=== PATIENT | female | born 1950 | race Caucasian/White ===

== ENCOUNTER 2017-11-30 06:04 | Day surgery (SDC) | payer OTHER, MEDICARE ==
--- OUTSIDE RECORDS SUMMARY | 2017-11-30 06:06 | XMS REPORT | Clinical Summary ---
:1950 Author Organization [facility] Address [address] [place] [address] Care Team Providers Name Role Phone Eduardo Padilla MD Primary Care Provider Allergies Active Allergy Reactions Severity Noted Date Comments Celecoxib Hives 08/16/2016 Cephalexin Other (See Comments) 08/16/2016 Current Medications Prescription Sig. Disp. Refills Start Date End Date Status propranolol (INDERAL) Take 40 mg Active 40 MG tablet by mouth 3 (three) times a day. meloxicam (MOBIC) 7.5 Take 7.5 mg 0 05/10/2016 Active mg tablet by mouth once daily. citalopram (CeleXA) Take 10 mg Active 10 MG tablet by mouth daily. estazolam (PROSOM) 2 Take 2 mg by Active MG tablet mouth nightly. aspirin (ECOTRIN) 81 Take 81 mg Active MG enteric coated by mouth tablet daily. uffi-klys-zgb-yuc-félix Take by Active -sultana-hor mouth. [phone] mg tablet Lactobacillus Take 1 Active acidoph-L.bulgar packet by (LACTINEX) 100 mouth 2 million cell tablet (two) times a day. cholecalciferol, Take 2,000 Active vitamin D3, (VITAMIN Units by D3) 2,000 unit mouth daily. capsule capsule pantoprazole Take 40 mg Active (PROTONIX) 40 MG EC by mouth 2 tablet (two) times a day. liothyronine Take 5 mcg Active (CYTOMEL) 5 MCG by mouth tablet daily. dicyclomine (BENTYL) Take 1 120 capsule 11 03/21/2017 Active 10 MG capsule (10 8 capsuleIndications: mg total) by HH (hiatus hernia), mouth 4 Gastroesophageal (four) times reflux disease, a day before esophagitis presence meals and not specified, nightly. Chronic gastritis with bleeding, unspecified gastritis type levothyroxine Take 100 mcg Discontinued (SYNTHROID, LEVOXYL) by mouth 7 100 mcg tablet every morning. esomeprazole Take by Discontinued magnesium 22.3 mg mouth. 7 capsule,delayed release(DR/EC) sucralfate (CARAFATE) Take 10 mL 1200 mL 0 03/21/2017 100 mg/mL (1 g total) 7 suspensionIndications by mouth 4 : HH (hiatus hernia), (four) times Gastroesophageal a day for 30 reflux disease, days. esophagitis presence not specified, Chronic gastritis with bleeding, unspecified gastritis type Active Problems Problem Noted Date Family history of polyps in the colon 08/16/2016 Hemorrhoids Pruritus ani HH (hiatus hernia) GERD (gastroesophageal reflux disease) Diverticulosis Gastritis Encounters Date Type Specialty Care Team Description 03/22/2017 Telephone Gastroenterology Reji Moore MD 03/21/2017 Office Visit Gastroenterology Reji Moore Hemorrhoids, unspecified hemorrhoid type (Primary Dx); MD Malick (hiatus hernia); Gastroesophageal reflux disease, esophagitis presence not specified; Diverticulosis of large intestine without hemorrhage; Chronic gastritis with bleeding, unspecified gastritis type; Pruritus ani; Family history of polyps in the colon 03/20/2017 Telephone Gastroenterology Reji Moore MD after 11/29/2016 Family History Medical History Relation Name Comments No Known Problems Mother Relation Name Status Comments Father Mother Social History Tobacco Use Types Packs/Day Years Used Date Former Smoker Alcohol Use Drinks/Week oz/Week Comments No Sex Assigned at Date Recorded Not on file Last Filed Vital Signs Vital Sign Reading Time Taken Blood Pressure 129/82 03/21/2017 4:17 PM CDT Pulse 77 03/21/2017 4:17 PM CDT Temperature 36.7 C (98 F) 03/21/2017 4:17 PM CDT Respiratory Rate - - Oxygen Saturation - - Inhaled Oxygen Concentration - - Weight 74.4 kg (164 lb) 03/21/2017 4:17 PM CDT Height - - Body Mass Index - - Plan of Treatment Health Maintenance Due Date Last Done Comments COLONOSCOPY 01/25/1998 MAMMOGRAM 01/25/1998 ZOSTER VACCINE 2008 PNEUMOCOCCAL POLYSACCHARIDE VACCINE AGE 65 AND OVER 01/25/2013 PNEUMOCOCCAL-13 01/25/2013 INFLUENZA VACCINE 03/14/2018 Results Not on fileafter 11/29/2016 Insurance Payer Benefit Plan / Group Subscriber ID Type Phone Address MEDICARE MEDICARE PART A AND B xxxxxxxxxx Medicare [place], [place] AARP AARP SUPPLEMENT xxxxxxxxx-xx Commercial [phone] [place], [place] [phone]
[2017-11-30] MEDS ORDERED: GLYCOPYRROLATE 0.2 MG/ML SYR ONE (07:01)
[2017-11-30] MEDS ORDERED: Ringers Lactate 1,000 ML IV ONE (07:02)
[2017-11-30] MEDS ORDERED: LIDOCAINE VISCOUS 2% SOLN 15 ML UDC ONE (07:17)
[2017-11-30] MEDS: Phenylephrine HCl 10 MG/ML 1 ML VIAL ONE ×2 (07:25→08:16)
[2017-11-30] MEDS: LIDOCAINE 4% TOP SOLUTION TOP ONE ×2 (07:25→08:16)
[2017-11-30] MEDS ORDERED: FENTANYL CITR 100 MCG/2 ML ONE (08:00)
[2017-11-30] MEDS ORDERED: MIDAZOLAM HCL 2 MG/2 ML INJ ONE (08:00)
[2017-11-30] MEDS ORDERED: PROPOFOL 200 MG/20 ML VIAL IV ONE (08:00)
[2017-11-30] MEDS ORDERED: LIDOCAINE 1% MPF 30 ML VIAL ONE (08:01)
[2017-11-30] MEDS ORDERED: LIDOCAINE 1% MPF 5 ML VIAL ONE (08:01)
--- NOTE | 2017-11-30 08:40 | P.OP ---
Date of Service: 11/30/17 (Bronchoscopy) Findings and Operative Technique Patient is 67 years of age evaluated by me for possible hemoptysis the former smoker has a reason for bronchoscopy DT scan chest x-ray unremarkable After obtaining informed consent from the patient she was premedicated by anesthesia finding normal upper airway normal vocal cords normal trachea normal lukasz normal endobronchial anatomy no endobronchial lesions visible no evidence of any bleeding in the entire respiratory tract Patient states that she has had endoscopy done before fold no bleeding I have instructed her to follow-up with the track and field coach she will need an endoscopy to rule out GI cause for her bleeding and present at bedside no procedures biopsies performed patient is in stable condition did not experience any hypertension or arrhythmia as
[2017-11-30 09:02] VITALS: BP 124/73; TEMP 98.1; O2SAT 97
== END 2017-11-30 09:10 | disposition home or self-care (01) ==
LOC: OR 06:04
PROVIDERS: ATTEND Internal Medicine Sleep Medicine
PROC: 0BJ08ZZ Inspection of Tracheobronchial Tree, Via Natural or Artificial Opening Endoscopic (ICD-10-PCS; principal; 2017-11-30 08:00)
DX: R04.2 Hemoptysis (principal); J44.9 Chronic obstructive pulmonary disease, unspecified; F32.9 Major depressive disorder, single episode, unspecified; K21.9 Gastro-esophageal reflux disease without esophagitis; I47.1 Supraventricular tachycardia; Z79.82 Long term (current) use of aspirin; Z88.1 Allergy status to other antibiotic agents; Z88.8 Allergy status to other drugs, medicaments and biological substances; Z87.891 Personal history of nicotine dependence
CPT/HCPCS: 31622; J2250; J2370; J3010

== ENCOUNTER 2019-06-27 15:24 | Emergency (ER) | payer OTHER, MEDICARE ==
--- OUTSIDE RECORDS SUMMARY | 2019-06-27 15:26 | XMS REPORT ---
:1950 Author [facility] Address [address] [place] [address] Care Team Providers Name Role Phone Unavailable Unavailable Unavailable Payers Payer Name Policy Type Policy Number Effective Date Expiration Date Problems This patient has no known problems. Allergies, Adverse Reactions, Alerts Allergy Name Allergy Status Severity Reaction(s) Onset Inactive Treating Comments Type Date Date Clinician misoprostol DA Active U 2019-04 00:00:0 0 cephalexin DA Active U 2019-04 00:00:0 0 diclofenac DA Active U 2019-04 00:00:0 0 celecoxib DA Active U 2019-04 00:00:0 0 misoprostol DA Active U 2019-03 00:00:0 0 cephalexin DA Active U 2019-03 00:00:0 0 trimethoprim DA Active U 2019-03 00:00:0 0 diclofenac DA Active U 2019-03 00:00:0 0 celecoxib DA Active U 2019-03 00:00:0 0 codeine DA Active U 2009-02 00:00:0 0 cephalexin DA Active U 2009-02 00:00:0 0 trimethoprim DA Active U 2009-02 00:00:0 0 Medications This patient has no known medications. Results Test Description Test Time Test Comments Text Results Atomic Results Result Comments - XR FLUORO FOR SPINE INJ 2019-04-16 16:47:00 Patient Name: BECCA FISHER Unit No: [id number] EXAMS: CPT CODE: [id number] XR FLUORO FOR SPINE INJ 63399 LUMBAR EPIRADICULAR INJECTION REFERRAL PHYSICIAN: Grzegorz Rayo M.D. PREOPERATIVE DIAGNOSIS: Lumbar Radiculitis POSTOPERATIVE DIAGNOSIS: L3-4 disc displacement with stenosis and bilateral lower extremity radicular pain PROCEDURES PERFORMED: Fluoroscopically guided needle localization of the bilateral L3 and bilateral L4 spinal nerves with transforaminal epidurograms and epidural injection of local anesthetic and steroid. FINDINGS: Fairly good flow seen through all foramen however proximal flow was limited in the bilateral L3-4 and L2-3 lateral recesses with limited flow cephalad across the L2-3 and L3-4 discs. Provocation with injection was negative. Anesthetic response was positive with the patient noting complete relief of her low back and lower extremity pains. Preinjection VAS 4/10. Postinjection VAS 0/10. Steroid response pending follow-up. ESTIMATED BLOOD LOSS: Minimal ANESTHESIA: TIVA COMPLICATIONS: None DETAILS OF PROCEDURE: After obtaining stable vital signs, informed consent and IV access, with no contraindications, the patient was taken to the operating room and placed in a prone position with all extremities padded and appropriate monitors placed. The patient was sterilely prepped and draped over the lumbosacral spine. Using fluoroscopic visualization the insertion sites were marked for paravertebral approaches and using standard technique, a 25 gauge needle was advanced to the base of each pedicle without paresthesias. Isovue-300 contrast 0.2 mL of was injected incrementally with frequent negative aspirations to produce each epidurogram. There were no signs of intravascular or intrathecal uptake. Bupivicaine 0.75% 0.25 mL with lidocaine 4% 0.25 mL and Decadron 5 mg was then incrementally injected with frequent negative aspirations and again there were no signs of intravascular or intrathecal uptake. The needles were removed and the patient was taken to the PACU in good condition. at 2350 Reported and signed by: Raj Israel M.D. CC: Raj Israel MD Technologist: ROLF OSUNA RT(R) Transcribed D/ (3824) [facility] NAME: BECCA FISHER [address] [facility] PHYS: Raj Marsh MD [place], [place] [address] : 1950 AGE: 69 SEX: F LOC: [facility] PHONE #: [phone] EXAM DATE: 04/16/2019 STATUS: [place] [facility] [place] #: [phone] RAD #: [id number] D/C DT PAGE 1 Signed Report Patient Name: BECCA FISHER Unit No: [id number] EXAMS: CPT CODE: [id number] XR FLUORO FOR SPINE INJ 23406 <Continued> Orig Print D/T: S: 04/16/2019 (1651) [facility] NAME: BECCA FISHER [address] [facility] PHYS: Raj Marsh MD [place], [place] [address] : 1950 AGE: 69 SEX: F LOC: [facility] PHONE #: [phone] EXAM DATE: 04/16/2019 STATUS: REG [facility] [place]X #: [phone] RAD #: [id number] D/C DT PAGE 2 Signed Report - MRI L-SPINE W/O CONT 2019-03-27 08:01:00 Patient Name: BECCA FISHER Unit No: [id number] EXAMS: CPT CODE: [id number] MRI L-SPINE W/O CONT 67932 DIAGNOSIS: 1. At L1-2 there is no evidence for disc bulge or herniation, bony canal or foraminal stenosis. 2. At L2-3 there is a degenerative grade 1 spondylolisthesis with 3 mm of left foraminal disc protrusion and mild left foraminal narrowing. Mild to moderate narrowing of the central canal is present with facet and ligamentum flavum hypertrophic and degenerative change. No right foraminal narrowing is seen. 3. At L3-4 there is a grade 1 degenerative spondylolisthesis with mild disc bulging and mild foraminal narrowing. There are to marked central canal stenosis is seen with facet and ligamentum flavum hypertrophic and degenerative change. Mild bilateral foraminal narrowing is present. 4. At L4-5 there is 3 mm of right foraminal disc protrusion with 2 mm across the midline. There is flattening of the ventral thecal sac. A moderate sized right facet cyst is present which is compressing the right L5 nerve root and the thecal sac. Moderate central canal stenosis is seen with facet and ligamentum flavum hypertrophic and degenerative change. Mild bilateral foraminal narrowing is noted. 5. At L5-S1 there is no evidence for disc bulge or herniation, bony canal or foraminal stenosis. COMMENT: COMPARISON: No prior exams available. Scans were performed in the sagittal and axial planes utilizing T1, T2 and inversion recovery images. Endplate and disc degeneration is seen from L2 to L5. The remaining discs are desiccated. There is a scoliosis convex left. Disc configurations are as described. Spondylitic changes are as noted. The conus is in the expected location. The description these findings assumes a normal count of 5 lumbar type vertebra. at 0801 Reported and signed by: Evaristo Lamb MD CC: Grzegorz Rayo MD Technologist: ZIGGY MENDOZA MRI Transcribed D/ (0801) tOLGA [facility] NAME: BECCA FISHER [address] [facility] PHYS: Grzegorz Aguiar : 1950 AGE: 69 SEX: F [place] [id number] LOC: Y.MRI PHONE #: [phone] EXAM DATE: 03/26/2019 STATUS: DEP CLI FAX #: [phone] RAD #: [id number] D/C DT PAGE 1 Signed Report Patient Name: BECCA FISHER Unit No: [id number] EXAMS: CPT CODE: [id number] MRI L-SPINE W/O CONT 40140 <Continued> Orig Print D/T: S: 03/27/2019 (0836) [facility] NAME: BECCA FISHER [address] [facility] PHYS: Grzegorz Aguiar : 1950 AGE: 69 SEX: F [place] [id number] LOC: Y.MRI PHONE #: [phone] EXAM DATE: 03/26/2019 STATUS: [facility] FAX #: [phone] RAD #: [id number] D/C DT PAGE 2 Signed Report
--- NOTE | 2019-06-27 16:16 | RAD REPORT ---
EXAM DESCRIPTION: CT - [id number] - 06/27/2019 3:50 pm CLINICAL HISTORY: Trauma, head and neck injury. fall, head injury COMPARISON: <Comparisons> TECHNIQUE: Axial 5 mm thick images of the head were obtained. Axial 2 mm thick images of the cervical spine were obtained with sagittal and coronal reconstruction images generated and reviewed. All CT scans are performed using dose optimization technique as appropriate and may include automated exposure control or mA/KV adjustment according to patient size. FINDINGS: CT HEAD WITHOUT CONTRAST: No acute hemorrhage, hydrocephalus or extra-axial collection is identified.No areas of brain edema or midline shift. The paranasal sinuses and mastoids are clear.The calvarium is intact. Right posterior scalp hematoma. CT CERVICAL SPINE WITHOUT CONTRAST: No fracture or subluxation.Postsurgical changes lower cervical spine.No prevertebral soft tissues swe lling is identified. IMPRESSION: No acute intracranial or cervical spine findings.
[2019-06-27] MEDS ORDERED: ACETAMINOPHEN 500 MG TAB ONE ×2 (16:22→16:27)
[2019-06-27] MEDS ORDERED: ONDANSETRON 4 MG/2 ML VIAL ONE (16:22)
--- NOTE | 2019-06-27 16:30 | RAD REPORT ---
EXAM DESCRIPTION: RAD - Chest Single View - 06/27/2019 4:25 pm CLINICAL HISTORY: syncope, near-syncope Chest pain. COMPARISON: Chest Pa And Lat (2 Views) dated 06/26/2019; Chest Pa And Lat (2 Views) dated 11/29/2017; Chest Pa And Lat (2 Views) dated 10/09/2017; Chest Single View dated 07/20/2017; Head C Spine Mpr Wo C on dated 06/27/2019 FINDINGS: Portable technique limits examination quality. The lungs are emphysematous but grossly clear. The heart is normal in size. No displaced fractures. IMPRESSION: No acute intrathoracic process suspected.
[2019-06-27 16:49] LABS: Absolute Lymphocytes (CBC) 0.7 K/uL (0.7-4.9); Basophils % 0.2 % (0-1.3); MPV 9.1 fL (7.6-11.3)
[2019-06-27 17:07] LABS: ALT/SGPT 29 U/L (12-78); AST/SGOT 38 U/L (15-37); Albumin 3.3 g/dL (3.4-5.0); Alkaline Phosphatase 66 U/L (45-117); BUN Blood Urea Nitrogen 7 mg/dL (7-18); Bicarbonate 30 mmol/L (21-32); Bilirubin Direct 0.1 mg/dL (0-0.2); Bilirubin Total 0.5 mg/dL (0.2-1.0); Glucose Level 89 mg/dL (74-106); Magnesium 1.9 mg/dL (1.8-2.4); NT PRO-BNP 349 pg/mL (<125); Potassium 3.3 mmol/L (3.5-5.1); Protein, Total 7.1 g/dL (6.4-8.2); Sodium Level 128 mmol/L (136-145); Troponin (Emerg Dept Use Only) < 0.02 ng/mL (0.0-0.045)
[2019-06-27 17:27] LABS: Protime INR 1.12
[2019-06-27] MEDS ORDERED: NA CHLORIDE 0.9% 500 ML ONE ×2 (17:29→18:40)
[2019-06-27] MEDS ORDERED: POTASSIUM CL SA 10 MEQ TAB PO ONE (17:29)
[2019-06-27 18:56] LABS: BUN Blood Urea Nitrogen 8 mg/dL (7-18); Bicarbonate 30 mmol/L (21-32); Glucose Level 114 mg/dL (74-106); Potassium 3.8 mmol/L (3.5-5.1); Sodium Level 128 mmol/L (136-145)
--- NOTE | 2019-06-27 19:35 | ER ---
Nurse's Notes [facility] Name: Sole Pike Age: 69 yrs Sex: Female : 1950 Arrival Date: 06/27/2019 Time: 15:30 Bed 5 Private MD: Diagnosis: Other slipping, tripping and stumbling and falls;Superficial injury of head;Abrasion of left upper arm;Abrasion of right upper arm Presentation: 06/27 15:34 Presenting complaint: Patient states: Fall from standing approximately 45 minutes ago. ss Pt is unsure whether she had a syncopal episode or if she tripped and fell. C/o splitting headache at this time. No bleeding is noted at this time. Care prior to arrival: Glucose check: 86. Mechanism of Injury: Fall from standing position. Trauma event details: Injury occurred in the [facility], Injury occurred: at home. Injury occurred: June 27, 2019. 15:34 Acuity: PATRIC 3 15:34 Method Of Arrival: EMS: [facility] 15:45 Transition of care: patient was not received from another setting of care. Onset of hb symptoms was June 27, 2019. Risk Assessment: Do you want to hurt yourself or someone else? Patient reports no desire to harm self or others. Initial Sepsis Screen: Does the patient meet any 2 criteria? No. Patient's initial sepsis screen is negative. Does the patient have a suspected source of infection? No. Patient's initial sepsis screen is negative. Trauma Activation: Alert Physician: ED Physician; Name: ; Notified At: ; Arrived At: Physician: General Surgeon; Name: ; Notified At: ; Arrived At: Physician: Radiology; Name: ; Notified At: ; Arrived At: Physician: Respiratory; Name: ; Notified At: ; Arrived At: Physician: Lab; Name: ; Notified At: ; Arrived At: Historical: - Allergies: 15:40 Arthrotec 50; hb 15:40 Celebrex; hb 15:40 Keflex; hb - PMHx: 15:40 Degenerative disc disease; insomnia; Thyroid problem; TIA; Tachycardia; Anxiety; hb - PSHx: 15:40 Thyroidectomy; hb - Immunization history:: Adult Immunizations up to date. - Immunization history: Last tetanus immunization: - up to date. - Social history:: Smoking status: Patient/guardian denies using tobacco. - Ebola Screening: : No symptoms or risks identified at this time. Screenin:39 Abuse screen: Denies threats or abuse. Denies injuries from another. Nutritional hb screening: No deficits noted. Tuberculosis screening: No symptoms or risk factors identified. Fall Risk Total Cook Fall Scale indicates Low Risk Score (25-44 pts). Fall prevention measures have been instituted. Side Rails Up X 2 Frequent Obs/Assesments occuring As available Patient and Family Educated on Fall Prevention Program and strategies. Primary Survey: 15:38 NO uncontrolled hemorrhage observed. A: The patient is alert. Airway: patent, No ss supplemental oxygen in use on arrival. Oral cavity: clear. Breathing/Chest: Respiratory pattern: regular, Respiratory effort: spontaneous, unlabored, Chest inspection: symmetrical rise and fall of the chest. Circulation: Pulses: palpable right radial artery and left radial artery. Disability Alert. Exposure/Environment: There is no evidence of uncontrolled external bleeding. No obvious injuries are noted at this time. 16:30 Reassessment Airway Airway Patent Oxygen No O2 Oral cavity Clear Trachea Midline hb Breathing/Chest Respiratory pattern Regular Respiratory effort Spontaneous Unlabored Chest inspection Symmetrical Circulation Color [place] Disability Alert. 17:30 Reassessment Airway Airway Patent Oxygen No O2 Breathing/Chest Respiratory pattern hb Regular Respiratory effort Spontaneous Unlabored Chest inspection Symmetrical Circulation Color [place] Temperature Warm Dry Disability Alert. 18:30 Reassessment Airway Airway Patent Oxygen No O2 Breathing/Chest Respiratory pattern hb Regular Respiratory effort Spontaneous Unlabored Chest inspection Symmetrical Circulation Color [place] Temperature Warm Dry Disability Alert. Secondary Survey: 15:45 HEENT: Head Other contusion to back of head noted. Gastrointestinal: No deficits noted. hb : No signs and/or symptoms were reported regarding the genitourinary system. Musculoskeletal: Reports headache. Assessment: 15:40 Reassessment: Trauma alert called. sv 15:41 General: Appears in no apparent distress. Behavior is calm, cooperative. Pain: Pain hb currently is 8 out of 10 on a pain scale. Neuro: Level of Consciousness is awake, alert, obeys commands, Oriented to person, place, time, situation, Reports dizziness, headache. EENT: No signs and/or symptoms were reported regarding the EENT system. Cardiovascular: Heart tones S1 S2 present Capillary refill < 3 seconds Patient's skin is warm and dry. Respiratory: Airway is patent Respiratory effort is even, unlabored, Respiratory pattern is regular, symmetrical, Breath sounds are clear bilaterally. GI: Reports nausea. : No signs and/or symptoms were reported regarding the genitourinary system. Derm: Skin is pink, warm \T\ dry. Musculoskeletal: No signs and/or symptoms reported regarding the musculoskeletal system. 16:30 Reassessment: Patient appears in no apparent distress at this time. Patient and/or hb family updated on plan of care and expected duration. Pain level reassessed. Patient is alert, oriented x 3, equal unlabored respirations, skin warm/dry/pink. 17:30 Reassessment: Patient appears in no apparent distress at this time. Patient and/or hb family updated on plan of care and expected duration. Pain level reassessed. Patient is alert, oriented x 3, equal unlabored respirations, skin warm/dry/pink. 18:15 Reassessment: Patient appears in no apparent distress at this time. Patient and/or hb family updated on plan of care and expected duration. Pain level reassessed. Patient is alert, oriented x 3, equal unlabored respirations, skin warm/dry/pink. Patient states feeling better. Patient states symptoms have improved. 18:40 Reassessment: Pt c/o dizziness and was unsteady when attempting to ambulate to bathroom. Dr. Short notified. NS 500ml bolus administered as ordered, gait and dizziness to be rechecked after bolus complete. 19:10 General: Appears in no apparent distress. comfortable, Behavior is calm, cooperative, rr5 agitated. Pain: Complains of pain in right parietal area Pain does not radiate. Quality of pain is described as aching, Pain began suddenly, Is intermittent. Neuro: Level of Consciousness is awake, alert, obeys commands, Oriented to person, place, time, situation, Appropriate for age. Cardiovascular: Capillary refill < 3 seconds Patient's skin is warm and dry. Respiratory: Airway is patent Respiratory effort is even, unlabored, Respiratory pattern is regular, symmetrical. GI: No signs and/or symptoms were reported involving the gastrointestinal system. : No signs and/or symptoms were reported regarding the genitourinary system. EENT: No signs and/or symptoms were reported regarding the EENT system. Derm: Skin is intact, is healthy with good turgor, Skin temperature is warm Wound noted right parietal area Wound is abrasion and swelling noted. 19:10 Musculoskeletal: Circulation, motion, and sensation intact. Capillary refill < 3 rr5 seconds. 19:15 Reassessment: Patient appears in no apparent distress at this time. Patient is alert, rr5 oriented x 3, equal unlabored respirations, skin warm/dry/pink. able to walk around the corridor without dizziness reported. ED provider aware. 19:42 Reassessment: reassessment done by ED provider with order for discharge. rr5 19:45 Reassessment: Patient appears in no apparent distress at this time. Patient is alert, rr5 oriented x 3, equal unlabored respirations, skin warm/dry/pink. discharge instruction given and explained without complaints made, verbalized understading. Patient denies pain at this time. Patient states feeling better. Patient states symptoms have improved. Vital Signs: 15:38 BP 149 / 67; Pulse 65; Resp 16; Temp 97.8(O); Pulse Ox 94% on R/A; Weight 81.65 kg; ss Height 5 ft. 5 in. (165.10 cm); Pain 8/10; 16:30 BP 119 / 59; Pulse 68; Resp 16; Pulse Ox 99% on R/A; Pain 3/10; hb 17:00 BP 116 / 62; Pulse 65; Resp 15; Pulse Ox 98% on R/A; hb 17:49 BP 110 / 63; Pulse 62; Resp 16; Temp 97.6(TE); Pulse Ox 97% on R/A; mh5 18:30 BP 124 / 60; Pulse 67; Resp 14; Pulse Ox 100% on R/A; hb 19:16 BP 140 / 71; Pulse 69; Resp 17; Temp 98.3; Pulse Ox 99% on R/A; rr5 19:49 BP 106 / 83; Pulse 66; Resp 16; Pulse Ox 98% ; rr5 15:38 Body Mass Index 29.95 (81.65 kg, 165.10 cm) [place] Coma Score: 15:38 Eye Response: spontaneous(4). Verbal Response: oriented(5). Motor Response: obeys ss commands(6). Total: 15. 19:16 Eye Response: spontaneous(4). Verbal Response: oriented(5). Motor Response: obeys rr5 commands(6). Total: 15. 19:49 Eye Response: spontaneous(4). Verbal Response: oriented(5). Motor Response: obeys rr5 commands(6). Total: 15. Trauma Score (Adult): 15:38 Eye Response: spontaneous(1); Verbal Response: oriented(1); Motor Response: obeys ss commands(2); Systolic BP: > 89 mm Hg(4); Respiratory Rate: 10 to 29 per min(4); [place] Score: 15; Trauma Score: 12 16:30 Eye Response: spontaneous(1); Verbal Response: oriented(1); Motor Response: obeys hb commands(2); Systolic BP: > 89 mm Hg(4); Respiratory Rate: 10 to 29 per min(4); Sajan Score: 15; Trauma Score: 12 17:30 Eye Response: spontaneous(1); Verbal Response: oriented(1); Motor Response: obeys hb commands(2); Systolic BP: > 89 mm Hg(4); Respiratory Rate: 10 to 29 per min(4); Sajan Score: 15; Trauma Score: 12 18:30 Eye Response: spontaneous(1); Verbal Response: oriented(1); Motor Response: obeys hb commands(2); Systolic BP: > 89 mm Hg(4); Respiratory Rate: 10 to 29 per min(4); [place] Score: 15; Trauma Score: 12 ED Course: 15:30 Patient arrived in ED. em1 15:38 Eran Short MD is Attending Physician. kdr 15:38 Patient maintains SpO2 saturation greater than 95% on room air. ss 15:40 Arm band placed on. hb 15:40 Patient has correct armband on for positive identification. Placed in gown. Bed in low mh5 position. Call light in reach. Side rails up X2. Adult w/ patient. Warm blanket given. Pulse ox on. NIBP on. 15:41 Triage completed. ss 15:45 Thermoregulation: warm blanket given to patient. hb 15:50 CT Head C Spine In Process Unspecified. EDMS 16:12 EKG done, by central service technician. reviewed by Eran Shrot MD. sm3 16:19 Tiffany Jc, ADRIANA is Primary Nurse. hb 16:20 Inserted saline lock: 20 gauge in right antecubital area, using aseptic technique. sv Blood collected. Flushed right antecubital with 5 ml normal saline. 16:26 XRAY Chest (1 view) In Process Unspecified. EDMS 16:35 No provider procedures requiring assistance completed. hb 18:35 Repeat lab(s) drawn. sent to lab. mh5 18:36 Chem 7 Sent. mh5 19:50 IV discontinued, intact, bleeding controlled, No redness/swelling at site. Pressure rr5 dressing applied. Administered Medications: 16:33 Drug: Zofran 4 mg Route: IVP; Site: right forearm; hb 17:30 Follow up: Response: No adverse reaction hb 16:36 Drug: Tylenol 1000 mg Route: PO; hb 17:30 Follow up: Response: No adverse reaction hb 17:40 Drug: NS 0.9% 500 ml Route: IV; Rate: bolus; Site: right antecubital; hb 18:25 Follow up: Response: No adverse reaction; IV Status: Completed infusion; IV Intake: hb 500ml 17:55 Drug: Potassium Chloride 40 mEq Route: PO; hb 18:45 Follow up: Response: No adverse reaction hb 18:40 Drug: NS 0.9% 500 ml Route: IV; Rate: bolus; Site: right antecubital; hb 19:20 Follow up: Response: No adverse reaction; IV Status: Completed infusion; IV Intake: rr5 500ml 19:45 Drug: Meclizine 25 mg Route: PO; rr5 19:49 Follow up: Response: Medication administered at discharge. rr5 Intake: 18:25 IV: 500ml; Total: 500ml. hb 19:20 IV: 500ml; Total: 1000ml. rr5 19:40 PO: 100ml (Water); Total: 1100ml. rr5 Output: 15:40 Urine: 400ml (Voided); Total: 400ml. mh5 19:40 Urine: 0ml; Total: 400ml. rr5 Outcome: 19:10 patient complaint episode of dizziness when tried to walk. IV infusion bolus rr5 ongoingPatient's length of stay extended due to 19:34 Discharge ordered by MD. kdr 19:50 Discharged to home ambulatory, with family. rr5 19:50 Condition: stable 19:50 Discharge instructions given to patient, family, Instructed on discharge instructions, follow up and referral plans. medication usage, Demonstrated understanding of instructions, follow-up care, medications, Prescriptions given X 2. 19:54 Patient left the ED. rr5 Signatures: Dispatcher [employer] EDAlivia Hardy, RN RN Eran Lira MD MD kdr Martinez, Eric 1 America Daniels RN RN ss Baxter, Heather, RN RN hb Martinez, Maria 5 Leann Romero 3 Baltazar Ruiz RN RN rr5
--- NOTE | 2019-06-27 19:35 | EDPHYS ---
Physician Documentation [facility] Name: Sole Pike Age: 69 yrs Sex: Female : 1950 Arrival Date: 06/27/2019 Time: 15:30 Bed 5 Private MD: ED Physician Eran Short HPI: 06/27 17:35 This 69 yrs old Female presents to ER via EMS with complaints of Fall Injury. kdr 17:35 Details of fall: The patient fell from an upright position, while standing. Onset: The kdr symptoms/episode began/occurred suddenly, just prior to arrival. Associated injuries: The patient sustained injury to the head, contusion, pain, swelling, tenderness. Severity of symptoms: At their worst the symptoms were mild, moderate, in the emergency department the symptoms are unchanged. The patient has not experienced similar symptoms in the past. The patient has not recently seen a physician. The patient has been feeling ill since Monday and had laid down but then felt hungry so she got up to make some Romin. Her was napping on the couch and heard her fall. The patient states that she remembers falling but can not pinpoint a reason for her fall. She now c/o pain to the back of her head. She has no other injury or c/o at this time. Historical: - Allergies: 15:40 Arthrotec 50; hb 15:40 Celebrex; hb 15:40 Keflex; hb - PMHx: 15:40 Degenerative disc disease; insomnia; Thyroid problem; TIA; Tachycardia; Anxiety; hb - PSHx: 15:40 Thyroidectomy; hb - Immunization history:: Adult Immunizations up to date. - Immunization history: Last tetanus immunization: - up to date. - Social history:: Smoking status: Patient/guardian denies using tobacco. - Ebola Screening: : No symptoms or risks identified at this time. ROS: 17:35 Constitutional: Negative for fever, chills, and weight loss, Eyes: Negative for injury, kdr pain, redness, and discharge, Neck: Negative for injury, pain, and swelling, Cardiovascular: Negative for chest pain, palpitations, and edema, Respiratory: Negative for shortness of breath, cough, wheezing, and pleuritic chest pain, Abdomen/GI: Negative for abdominal pain, nausea, vomiting, diarrhea, and constipation, Back: Negative for injury and pain, : Negative for injury, bleeding, discharge, and swelling, MS/Extremity: Negative for injury and deformity, Skin: Negative for injury, rash, and discoloration, Psych: Negative for depression, anxiety, suicide ideation, homicidal ideation, and hallucinations, Allergy/Immunology: Negative for hives, rash, and allergies, Endocrine: Negative for neck swelling, polydipsia, polyuria, polyphagia, and marked weight changes, Hematologic/Lymphatic: Negative for swollen nodes, abnormal bleeding, and unusual bruising. 17:35 Neuro: Positive for headache, Negative for altered mental status, hearing loss. Exam: 17:35 Constitutional: This is a well developed, well nourished patient who is awake, alert, kdr and in no acute distress. Head/Face: Normocephalic, contusion and hematoma to left occiput. Eyes: Pupils equal round and reactive to light, extra-ocular motions intact. Lids and lashes normal. Conjunctiva and sclera are non-icteric and not injected. Cornea within normal limits. Periorbital areas with no swelling, redness, or edema. Neck: Trachea midline, no thyromegaly or masses palpated, and no cervical lymphadenopathy. Supple, full range of motion without nuchal rigidity, or vertebral point tenderness. No Meningismus. Chest/axilla: Normal chest wall appearance and motion. Nontender with no deformity. No lesions are appreciated. Cardiovascular: Regular rate and rhythm with a normal S1 and S2. No gallops, murmurs, or rubs. Normal PMI, no JVD. No pulse deficits. Respiratory: Lungs have equal breath sounds bilaterally, clear to auscultation and percussion. No rales, rhonchi or wheezes noted. No increased work of breathing, no retractions or nasal flaring. Abdomen/GI: Soft, non-tender, with normal bowel sounds. No distension or tympany. No guarding or rebound. No evidence of tenderness throughout. Back: No spinal tenderness. No costovertebral tenderness. Full range of motion. MS/ Extremity: Pulses equal, no cyanosis. Neurovascular intact. Full, normal range of motion. Neuro: Awake and alert, GCS 15, oriented to person, place, time, and situation. Cranial nerves II-XII grossly intact. Motor strength 5/5 in all extremities. Sensory grossly intact. Cerebellar exam normal. Normal gait. Psych: Awake, alert, with orientation to person, place and time. Behavior, mood, and affect are within normal limits. 17:35 Skin: Appearance: injury, abrasion(s), small abrasion noted, Mild contusions and abrasions to both arms. Vital Signs: 15:38 BP 149 / 67; Pulse 65; Resp 16; Temp 97.8(O); Pulse Ox 94% on R/A; Weight 81.65 kg; ss Height 5 ft. 5 in. (165.10 cm); Pain 8/10; 16:30 BP 119 / 59; Pulse 68; Resp 16; Pulse Ox 99% on R/A; Pain 3/10; hb 17:00 BP 116 / 62; Pulse 65; Resp 15; Pulse Ox 98% on R/A; hb 17:49 BP 110 / 63; Pulse 62; Resp 16; Temp 97.6(TE); Pulse Ox 97% on R/A; mh5 18:30 BP 124 / 60; Pulse 67; Resp 14; Pulse Ox 100% on R/A; hb 19:16 BP 140 / 71; Pulse 69; Resp 17; Temp 98.3; Pulse Ox 99% on R/A; rr5 19:49 BP 106 / 83; Pulse 66; Resp 16; Pulse Ox 98% ; rr5 15:38 Body Mass Index 29.95 (81.65 kg, 165.10 cm) ss Sajan Coma Score: 15:38 Eye Response: spontaneous(4). Verbal Response: oriented(5). Motor Response: obeys ss commands(6). Total: 15. 19:16 Eye Response: spontaneous(4). Verbal Response: oriented(5). Motor Response: obeys rr5 commands(6). Total: 15. 19:49 Eye Response: spontaneous(4). Verbal Response: oriented(5). Motor Response: obeys rr5 commands(6). Total: 15. Trauma Score (Adult): 15:38 Eye Response: spontaneous(1); Verbal Response: oriented(1); Motor Response: obeys ss commands(2); Systolic BP: > 89 mm Hg(4); Respiratory Rate: 10 to 29 per min(4); [place] Score: 15; Trauma Score: 12 16:30 Eye Response: spontaneous(1); Verbal Response: oriented(1); Motor Response: obeys hb commands(2); Systolic BP: > 89 mm Hg(4); Respiratory Rate: 10 to 29 per min(4); [place] Score: 15; Trauma Score: 12 17:30 Eye Response: spontaneous(1); Verbal Response: oriented(1); Motor Response: obeys hb commands(2); Systolic BP: > 89 mm Hg(4); Respiratory Rate: 10 to 29 per min(4); [place] Score: 15; Trauma Score: 12 18:30 Eye Response: spontaneous(1); Verbal Response: oriented(1); Motor Response: obeys hb commands(2); Systolic BP: > 89 mm Hg(4); Respiratory Rate: 10 to 29 per min(4); Sajan Score: 15; Trauma Score: 12 MDM: 17:35 Data reviewed: vital signs, nurses notes, lab test result(s), radiologic studies. kdr Counseling: I had a detailed discussion with the patient and/or guardian regarding: the historical points, exam findings, and any diagnostic results supporting the discharge/admit diagnosis, lab results, radiology results, the need for outpatient follow up. 19:34 Patient medically screened. [facility] 06/27 16:04 Order name: Basic Metabolic Panel; Complete Time: 17:11 [facility] 06/27 16:04 Order name: CBC with Diff kdr 06/27 16:04 Order name: LFT's; Complete Time: 17:11 [facility] 06/27 16:04 Order name: Magnesium; Complete Time: 17:11 [facility] 06/27 16:04 Order name: NT PRO-BNP; Complete Time: 17:11 [facility] 06/27 16:04 Order name: PT-INR; Complete Time: 17:34 kdr 06/27 15:39 Order name: CT Head C Spine; Complete Time: 16:25 [facility] 06/27 16:04 Order name: Troponin (emerg Dept Use Only); Complete Time: 17:11 [facility] 06/27 16:04 Order name: XRAY Chest (1 view); Complete Time: 17:00 [facility] 06/27 18:23 Order name: Chem 7; Complete Time: 19:26 [facility] 06/27 16:04 Order name: EKG; Complete Time: 16:06 [facility] 06/27 16:04 Order name: Cardiac monitoring; Complete Time: 16:32 kdr 06/27 16:04 Order name: EKG - Nurse/Tech; Complete Time: 16:19 kdr 06/27 16:04 Order name: IV Saline Lock; Complete Time: 16:32 kdr 06/27 16:04 Order name: Labs collected and sent; Complete Time: 16:32 kdr 06/27 16:04 Order name: O2 Per Protocol; Complete Time: 16:32 kdr 06/27 16:04 Order name: O2 Sat Monitoring; Complete Time: 16:32 kdr Administered Medications: 16:33 Drug: Zofran 4 mg Route: IVP; Site: right forearm; hb 17:30 Follow up: Response: No adverse reaction hb 16:36 Drug: Tylenol 1000 mg Route: PO; hb 17:30 Follow up: Response: No adverse reaction hb 17:40 Drug: NS 0.9% 500 ml Route: IV; Rate: bolus; Site: right antecubital; hb 18:25 Follow up: Response: No adverse reaction; IV Status: Completed infusion; IV Intake: hb 500ml 17:55 Drug: Potassium Chloride 40 mEq Route: PO; hb 18:45 Follow up: Response: No adverse reaction hb 18:40 Drug: NS 0.9% 500 ml Route: IV; Rate: bolus; Site: right antecubital; hb 19:20 Follow up: Response: No adverse reaction; IV Status: Completed infusion; IV Intake: rr5 500ml 19:45 Drug: Meclizine 25 mg Route: PO; rr5 19:49 Follow up: Response: Medication administered at discharge. rr5 Disposition: 06/27/19 19:34 Discharged to Home. Impression: Other slipping, tripping and stumbling and falls, Superficial injury of head, Abrasion of left upper arm, Abrasion of right upper arm. - Condition is Stable. - Discharge Instructions: Hyponatremia, [id number], Head Injury, Adult, [id number]. - Prescriptions for Zofran 4 mg Oral Tablet - take 1 tablet by ORAL route every 4-6 hours As needed; 12 tablet. - Medication Reconciliation Form, Thank You Letter form. - Follow up: Private Physician; When: 2 - 3 days; Reason: If symptoms return, Further diagnostic work-up, Recheck today's complaints, Continuance of care, Re-evaluation by your physician. - Problem is new. - Symptoms have improved. Signatures: Dispatcher [employer] EDEran Lovelace MD MD kdr Tiffany Jc RN RN Baltazar Ruiz RN RN rr5 Corrections: (The following items were deleted from the chart) 19:54 19:34 06/27/2019 19:34 Discharged to Home. Impression: Other slipping, tripping and rr5 stumbling and falls; Superficial injury of head; Abrasion of left upper arm; Abrasion of right upper arm. Condition is Stable. Forms are Medication Reconciliation Form, Thank You Letter, Antibiotic Education, Prescription Opioid Use. Follow up: Private Physician; When: 2 - 3 days; Reason: If symptoms return, Further diagnostic work-up, Recheck today's complaints, Continuance of care, Re-evaluation by your physician. Problem is new. Symptoms have improved. kdr
[2019-06-27] MEDS ORDERED: MECLIZINE HCL 12.5 MG TAB ONE (19:42)
[2019-06-27 19:56] LABS: Blood Morphology Comment NOT SEEN (NOT SEEN); Platelet Estimate ADEQ; Urine White Blood Cell Casts OK
[2019-06-27 20:13] VITALS: TEMP 98.3
[2019-06-27 20:14] VITALS: BP 106/83; O2SAT 98
--- NOTE | 2019-06-28 07:55 | EKG ---
Test Date: 2019-06-27 Test Time: 16:05:34 Ginning Operator: NANCY MEASUREMENT RESULTS: Intervals: Rate: 64 [place]: 160 QRSD: 102 QT: 444 QTc: 458 [place]: P: 72 [place]: 160 QRS: 3 T: 11 INTERPRETIVE STATEMENTS: Normal sinus rhythm Normal ECG Compared to ECG 07/20/2017 09:53:38 No significant changes Electronically Signed On 06-28-19 07:54:42 SENIOR PHYSICAL THERAPIST by Abhijeet Luciano
== END 2019-06-27 19:54 | disposition home or self-care (01) ==
LOC: ER 15:24
DX: S00.90XA Unspecified superficial injury of unspecified part of head, initial encounter (principal); S40.812A Abrasion of left upper arm, initial encounter; S40.811A Abrasion of right upper arm, initial encounter; W01.0XXA Fall on same level from slipping, tripping and stumbling without subsequent striking against object, initial encounter; Y93.89 Activity, other specified; Y92.9 Unspecified place or not applicable; Z88.8 Allergy status to other drugs, medicaments and biological substances
CPT/HCPCS: 96361; 93005; 85025; 80048 ×2; 36415; 83735; 85610; 80076; 84484; 83880; 70450; 72125; 71045; 96374; 99285; J7040 ×2; J2405; J8597

== ENCOUNTER 2019-07-24 00:17 | Observation (INO) | payer OTHER, MEDICARE ==
--- OUTSIDE RECORDS SUMMARY | 2019-07-24 00:19 | XMS REPORT ---
:1950 [facility] [address] [place] [address] Care Team Providers Name Role Phone Unavailable [...] 16:47:00 Patient Name: BECCA FISHER Unit No: [id number] EXAMS: CPT CODE: [id number] XR FLUORO FOR SPINE INJ 36331 LUMBAR EPIRADICULAR INJECTION REFERRAL PHYSICIAN: Grzegorz Rayo [...] to the PACU in good condition. at 0487 Reported and signed by: Raj Israel M.D. CC: Raj Israel MD Technologist: ROLF OSUNA RT(R) Transcribed D/ (7548) [facility]: BECCA FISHER [address] PHYS: Raj Marsh MD [place], [place] [address] : 1950 AGE: 69 SEX: F LOC: ALISON PHONE #: [phone] EXAM DATE: 04/16/2019 STATUS: REG [facility] FAX #: [phone] RAD #: [id number] D/C DT PAGE 1 Signed Report Patient Name: BECCA FISHER Unit No: [id number] EXAMS: CPT CODE: [id number] XR FLUORO FOR SPINE INJ 18149 <Continued> Orig Print D/T: S: 04/16/2019 (1651) [facility] NAME: BECCA FISHER [address] PHYS: Raj Marsh MD [place], [place] [address] : 1950 AGE: 69 SEX: F LOC: ALISON PHONE #: [phone] EXAM DATE: 04/16/2019 STATUS: REG [facility] FAX #: [phone] RAD #: [id number] D/C DT PAGE 2 Signed Report - MRI L-SPINE W/O CONT 2019-03-27 08:01:00 Patient Name: BECCA FISHER Unit No: [id number] EXAMS: CPT CODE: [id number] MRI L-SPINE W/O CONT 99694 DIAGNOSIS: 1. At L1-2 there is no [...] ZIGGY MENDOZA MRI Transcribed D/ (0801) tOLGA [facility] NAME: BECCA FISHER [address] PHYS: Grzegorz Aguiar : 1950 AGE: 69 SEX: F [place] [address] LOC: Y.MRI PHONE #: [phone] EXAM DATE: 03/26/2019 STATUS: DEP CLI FAX #: [phone] RAD #: [id number] D/C DT PAGE 1 Signed Report Patient Name: BECCA FISHER Unit No: [id number] EXAMS: CPT CODE: [id number] MRI L-SPINE W/O CONT 05035 <Continued> Orig Print D/T: S: 03/27/2019 (0836) [facility] NAME: BCECA FISHER [address] PHYS: Grzegorz Aguiar : 1950 AGE: 69 SEX: F [place] [address] LOC: Y.MRI PHONE #: [phone] EXAM DATE: 03/26/2019 STATUS: [facility] FAX #: [phone] RAD #: [id number] D/C DT PAGE 2 Signed Report
[2019-07-24] MEDS ORDERED: ONDANSETRON 4 MG/2 ML VIAL ONE (00:54)
[2019-07-24] MEDS ORDERED: FENTANYL CITR 100 MCG/2 ML ONE (00:54)
[2019-07-24 00:59] LABS: Absolute Lymphocytes (CBC) 1.6 K/uL (0.7-4.9); Basophils % 0.4 % (0-1.3); Hematocrit 37.8 % (36.0-45.0); Lymphocytes % 14.8 % (15.3-44.8); MPV 8.8 fL (7.6-11.3); Protime INR 1.1; RBC Red Blood Cell Count 3.99 M/uL (3.86-4.86)
[2019-07-24 01:20] LABS: ALT/SGPT 19 U/L (12-78); AST/SGOT 14 U/L (15-37); Albumin 3.5 g/dL (3.4-5.0); Alkaline Phosphatase 96 U/L (45-117); BUN Blood Urea Nitrogen 13 mg/dL (7-18); Bicarbonate 29 mmol/L (21-32); Bilirubin Direct 0.1 mg/dL (0-0.2); Bilirubin Total 0.4 mg/dL (0.2-1.0); Glucose Level 104 mg/dL (74-106); Magnesium 2.1 mg/dL (1.8-2.4); NT PRO-BNP 145 pg/mL (<125); Potassium 3.6 mmol/L (3.5-5.1); Protein, Total 8.1 g/dL (6.4-8.2); Sodium Level 134 mmol/L (136-145); Troponin (Emerg Dept Use Only) < 0.02 ng/mL (0.0-0.045)
[2019-07-24] MEDS ORDERED: ENOXAPARIN 80 MG/0.8 ML SQ ONE (05:05)
--- NOTE | 2019-07-24 05:18 | EDPHYS ---
Physician Documentation [facility] Name: Sole Pike Age: 69 yrs Sex: Female : 1950 Arrival Date: 07/24/2019 Time: 00:18 Bed 19 Private MD: ED Physician Manuel Saul HPI: 07/24 06:35 This 69 yrs old Female presents to ER via Wheelchair with complaints of Chest wa Pain. 06:35 The patient or guardian reports chest pain that is located primarily in the anterior wa aspect of left upper chest and left breast. Onset: suddenly, just prior to arrival. The pain does not radiate. Associated signs and symptoms: Pertinent positives: shortness of breath, Pertinent negatives: abdominal pain, cough, dizziness, headache, lightheadedness, palpitations. The chest pain is described as sharp. Duration: The patient or guardian reports a single episode. Modifying factors: The symptoms are alleviated by nothing. the symptoms are aggravated by nothing. Severity of pain: At its worst the pain was severe in the emergency department the pain is unchanged. The patient has experienced a previous episode, was at that time dx'd with pleurisy, . The patient has not recently seen a physician. h/o pleurisy. Historical: - Allergies: 00:36 Arthrotec 50; wh 00:36 Celebrex; wh 00:36 Keflex; wh - Home Meds: 00:36 liothyronine 25 mcg oral tab 1 tab once daily [Active]; levothyroxine 75 mcg tab 1 tab wh once daily [Active]; tumeric nightly nightly [Active]; Celexa 40 mg Oral tab nightly [Active]; multistrain probiotic nightly [Active]; Vitamin D Oral twice a day [Active]; Inderal LA Oral 2 times per day [Active]; Tylenol #2 Oral 1 tablet twice a day [Active]; Nexium 20 mg Oral cpDR 1 cap 2 times per day [Active]; - PMHx: 00:36 Anxiety; Degenerative disc disease; insomnia; Tachycardia; Thyroid problem; TIA; wh ADD/ADHD; - PSHx: 00:36 Cholecystectomy; Appendectomy; Thyroidectomy; wh - Immunization history:: Adult Immunizations up to date. - Social history:: Smoking status: Patient/guardian denies using tobacco. - Ebola Screening: : Patient negative for fever greater than or equal to 101.5 degrees Fahrenheit, and additional compatible Ebola Virus Disease symptoms Patient denies exposure to infectious person. - Family history:: not pertinent. - Hospitalizations: : No recent hospitalization is reported. ROS: 06:38 Constitutional: Negative for fever, chills, and weight loss, Eyes: Negative for injury, wa pain, redness, and discharge, ENT: Negative for injury, pain, and discharge, Neck: Negative for injury, pain, and swelling, Abdomen/GI: Negative for abdominal pain, nausea, vomiting, diarrhea, and constipation, Back: Negative for injury and pain, : Negative for injury, bleeding, discharge, and swelling, MS/Extremity: Negative for injury and deformity. 06:38 Cardiovascular: Positive for chest pain, Negative for edema, orthopnea, palpitations, paroxysmal nocturnal dyspnea. 06:38 Respiratory: Positive for shortness of breath, Negative for cough, hemoptysis, orthopnea. 06:40 Skin: Negative for injury, rash, and discoloration, Neuro: Negative for headache, wa weakness, numbness, tingling, and seizure, Psych: Negative for depression, anxiety, suicide ideation, homicidal ideation, and hallucinations. 06:40 All other systems are negative. Exam: 06:41 Constitutional: This is a well developed, well nourished patient who is awake, alert, wa and in no acute distress. Head/Face: Normocephalic, atraumatic. Eyes: Pupils equal round and reactive to light, extra-ocular motions intact. Lids and lashes normal. Conjunctiva and sclera are non-icteric and not injected. Cornea within normal limits. Periorbital areas with no swelling, redness, or edema. ENT: Nares patent. No nasal discharge, no septal abnormalities noted. Tympanic membranes are normal and external auditory canals are clear. Oropharynx with no redness, swelling, or masses, exudates, or evidence of obstruction, uvula midline. Mucous membranes moist. Neck: Trachea midline, no thyromegaly or masses palpated, and no cervical lymphadenopathy. Supple, full range of motion without nuchal rigidity, or vertebral point tenderness. No Meningismus. Abdomen/GI: Soft, non-tender, with normal bowel sounds. No distension or tympany. No guarding or rebound. No evidence of tenderness throughout. Back: No spinal tenderness. No costovertebral tenderness. Full range of motion. Skin: Warm, dry with normal turgor. Normal color with no rashes, no lesions, and no evidence of cellulitis. MS/ Extremity: Pulses equal, no cyanosis. Neurovascular intact. Full, normal range of motion. Neuro: Awake and alert, GCS 15, oriented to person, place, time, and situation. Cranial nerves II-XII grossly intact. Motor strength 5/5 in all extremities. Sensory grossly intact. Cerebellar exam normal. Normal gait. Psych: Awake, alert, with orientation to person, place and time. Behavior, mood, and affect are within normal limits. 06:41 Chest/axilla: Inspection: normal, Palpation: no acute changes, Axilla: 06:41 Cardiovascular: Rate: normal, Rhythm: regular, Pulses: no pulse deficits are appreciated, Heart sounds: normal, Edema: is not appreciated, JVD: is not appreciated. 06:41 ECG was reviewed by the Attending Physician. 06:41 Respiratory: the patient does not display signs of respiratory distress, Respirations: normal, Breath sounds: are clear throughout, Respiratory rate: normal Vital Signs: 00:36 BP 136 / 57; Pulse 77; Resp 18; Temp 97.7; Pulse Ox 100% ; Weight 79.38 kg; Height 5 wh ft. 5 in. (165.10 cm); Pain 10/10; 01:51 BP 94 / 49; Pulse 75; Resp 16; Pulse Ox 96% ; wh 03:15 BP 117 / 71; Pulse 69; Resp 16; Pulse Ox 99% ; wh 04:30 BP 119 / 62; Pulse 69; Resp 18; Pulse Ox 100% on R/A; wh 00:36 Body Mass Index 29.12 (79.38 kg, 165.10 cm) MDM: 00:37 Patient medically screened. mt 06:43 Differential diagnosis: acute myocardial infarction, acute pericarditis, coronary wa artery disease chest wall pain, Cholelithiasis costochondritis, esophagitis, gastritis, hiatal hernia, pulmonary embolus, stable angina, thoracic aortic disection, unstable angina. HEART Score: History: Moderately Suspicious (1), ECG: Non specific repolarization disturbance / LBTB / PM (1), Age: > or = 65 years (2), Risk Factors: No Risk Factors Known (0), Troponin: < or = 1 x Normal Limit (0), Total Score = 5. Data reviewed: vital signs, nurses notes, lab test result(s), EKG, radiologic studies. Test interpretation: by ED physician or midlevel provider: EKG interp by me: HR 78. nml sinus. nml axis. diffuse ST-T changes. non-specific. 06:51 Test interpretation: by ED physician or midlevel provider: labs noted wnl. . mt 06:52 Test interpretation: by ED physician or midlevel provider: CT chest: noted for PE. mt noted for lung infarction. 07/24 00:42 Order name: Basic Metabolic Panel; Complete Time: 01: mt 07/24 00:42 Order name: CBC with Diff; Complete Time: : mt 07/24 00:42 Order name: LFT's; Complete Time: : mt 07/24 00:42 Order name: Magnesium; Complete Time: 01: mt 07/24 00:42 Order name: NT PRO-BNP; Complete Time: : mt 07/24 00:42 Order name: PT-INR; Complete Time: : mt 07/24 00:42 Order name: Troponin (emerg Dept Use Only); Complete Time: 01: mt 07/24 06:23 Order name: Basic Metabolic Panel [facility] 07/24 06:23 Order name: Basic Metabolic Panel [facility] 07/24 06:23 Order name: CBC with Automated Diff [facility] 07/24 06:23 Order name: CBC with Automated Diff [facility] 07/24 06:23 Order name: Troponin I [facility] 07/24 06:23 Order name: Troponin I [facility] 07/24 06:23 Order name: Troponin I [facility] 07/24 00:42 Order name: XRAY Chest (1 view) mt 07/24 00:42 Order name: EKG; Complete Time: 00:44 mt 07/24 00:42 Order name: Cardiac monitoring; Complete Time: 00:43 mt 07/24 00:42 Order name: EKG - Nurse/Tech; Complete Time: 00:43 mt 07/24 00:43 Order name: CT Chest W/ Con mt 07/24 06:23 Order name: CONS Physician Consult [facility] 07/24 06:23 Order name: CONS Physician Consult [facility] 07/24 06:23 Order name: Consistent Carb (ADA) [address] EDMT 07/24 06:23 Order name: EKG Electrocardiogram EDMS 07/24 06:23 Order name: EKG Electrocardiogram EDMS 07/24 06:23 Order name: EKG Electrocardiogram EDMS 07/24 06:23 Order name: EKG Electrocardiogram EDMS 07/24 00:42 Order name: IV Saline Lock; Complete Time: 00:43 mt 07/24 00:42 Order name: Labs collected and sent; Complete Time: 00:43 mt 07/24 00:42 Order name: O2 Per Protocol; Complete Time: 00:43 mt 07/24 00:42 Order name: O2 Sat Monitoring; Complete Time: 00:43 mt Administered Medications: 00:50 Drug: fentaNYL (PF) 75 mcg Route: IVP; Site: right antecubital; 01:50 Follow up: Response: No adverse reaction 01:50 Follow up: Response: No adverse reaction; Pain is decreased; RASS: Alert and Calm (0) 00:52 Drug: Zofran 4 mg Route: IVP; Site: right antecubital; 01:50 Follow up: Response: No adverse reaction 05:11 Drug: Lovenox 80 mg Route: Sub-Q; Site: right lower abdomen; 06:30 Drug: fentaNYL (PF) 50 mcg Route: IVP; Site: right antecubital; Disposition: 07/24/19 05:18 Hospitalization ordered by Eduardo Padilla for Inpatient Admission. Preliminary diagnosis are Acute left-sided chest pain, pulmonary infarction, pulmonary embolus. - Bed requested for Telemetry/MedSurg (Inpatient). - Status is Inpatient Admission. iw - Condition is Stable. - Problem is new. - Symptoms have improved. UTI on Admission? No Signatures: Dispatcher [employer] EDMT Fatmata Gupta RN RN mw Williams, Irene, RN RN iw Habalo, Winsy Manuel Saul MD MD wa Corrections: (The following items were deleted from the chart) 06:04 05:18 Hospitalization Ordered by Eduardo Padilla MD for Inpatient Admission. Preliminary diagnosis is Acute left-sided chest pain; pulmonary infarction; pulmonary embolus. Bed requested for Telemetry/MedSurg (Inpatient). Status is Inpatient Admission. Condition is Stable. Problem is new. Symptoms have improved. UTI on Admission? No. mt 07:34 06:04 07/24/2019 05:18 Hospitalization Ordered by Eduardo Padilla MD for Inpatient Admission. Preliminary diagnosis is Acute left-sided chest pain; pulmonary infarction; pulmonary embolus. Bed requested for Telemetry/MedSurg (Inpatient). Status is Inpatient Admission. Condition is Stable. Problem is new. Symptoms have improved. UTI on Admission? No. mw
--- NOTE | 2019-07-24 05:18 | ER ---
Nurse's Notes [facility] Name: Sole Pike Age: 69 yrs Sex: Female : 1950 Arrival Date: 07/24/2019 Time: 00:18 Bed 19 Private MD: Diagnosis: Acute left-sided chest pain;pulmonary infarction;pulmonary embolus Presentation: 07/24 00:30 Presenting complaint: Patient states: she has Hx of Pleurisy woke up 45 minutes ago wh with severe back rib pain. Pt denies chest pain. Transition of care: patient was not received from another setting of care. Onset of symptoms was July 24, 2019. Risk Assessment: Do you want to hurt yourself or someone else? Patient reports no desire to harm self or others. Initial Sepsis Screen: Does the patient meet any 2 criteria? No. Patient's initial sepsis screen is negative. Does the patient have a suspected source of infection? No. Patient's initial sepsis screen is negative. Care prior to arrival: None. 00:30 Method Of Arrival: Wheelchair 00:30 Acuity: PATRIC 3 wh Historical: - Allergies: 00:36 Arthrotec 50; 00:36 Celebrex; 00:36 Keflex; - Home Meds: 00:36 liothyronine 25 mcg oral tab 1 tab once daily [Active]; levothyroxine 75 mcg tab 1 tab once daily [Active]; tumeric nightly nightly [Active]; Celexa 40 mg Oral tab nightly [Active]; multistrain probiotic nightly [Active]; Vitamin D Oral twice a day [Active]; Inderal LA Oral 2 times per day [Active]; Tylenol #2 Oral 1 tablet twice a day [Active]; Nexium 20 mg Oral cpDR 1 cap 2 times per day [Active]; - PMHx: 00:36 Anxiety; Degenerative disc disease; insomnia; Tachycardia; Thyroid problem; TIA; wh ADD/ADHD; - PSHx: 00:36 Cholecystectomy; Appendectomy; Thyroidectomy; wh - Immunization history:: Adult Immunizations up to date. - Social history:: Smoking status: Patient/guardian denies using tobacco. - Ebola Screening: : Patient negative for fever greater than or equal to 101.5 degrees Fahrenheit, and additional compatible Ebola Virus Disease symptoms Patient denies exposure to infectious person. - Family history:: not pertinent. - Hospitalizations: : No recent hospitalization is reported. Screenin:38 Abuse screen: Denies threats or abuse. Denies injuries from another. Nutritional wh screening: No deficits noted. Tuberculosis screening: No symptoms or risk factors identified. Fall Risk None identified. Assessment: 00:38 General: Appears in no apparent distress. Behavior is calm, cooperative, appropriate wh for age. Pain: Complains of pain in left mid back Pain does not radiate. Pain currently is 9 out of 10 on a pain scale. Quality of pain is described as Pain began 1 hour ago. Neuro: Level of Consciousness is awake, alert, obeys commands, Oriented to person, place, time, situation, Appropriate for age. Cardiovascular: Heart tones S1 S2 Rhythm is regular. Respiratory: Airway is patent Respiratory effort is even, unlabored, Respiratory pattern is regular, symmetrical, Breath sounds are clear bilaterally. GI: Abdomen is flat, non-distended. : No signs and/or symptoms were reported regarding the genitourinary system. EENT: No signs and/or symptoms were reported regarding the EENT system. Derm: Skin is intact, is healthy with good turgor, Skin is pink, warm \T\ dry. normal. 01:51 Reassessment: Patient appears in no apparent distress at this time. No changes from previously documented assessment. Patient and/or family updated on plan of care and expected duration. Pain level reassessed. Patient is alert, oriented x 3, equal unlabored respirations, skin warm/dry/pink. Patient states feeling better. 03:10 Reassessment: Patient appears in no apparent distress at this time. No changes from previously documented assessment. Patient and/or family updated on plan of care and expected duration. Pain level reassessed. Patient is alert, oriented x 3, equal unlabored respirations, skin warm/dry/pink. Explained to Pt and SO imaging not crossing over creating a delay on the official reading Patient states feeling better. 04:40 Reassessment: Patient appears in no apparent distress at this time. No changes from previously documented assessment. Patient and/or family updated on plan of care and expected duration. Pain level reassessed. Patient is alert, oriented x 3, equal unlabored respirations, skin warm/dry/pink. Still waiting on official reading, Pt and SO notified Patient states feeling better. Vital Signs: 00:36 BP 136 / 57; Pulse 77; Resp 18; Temp 97.7; Pulse Ox 100% ; Weight 79.38 kg; Height 5 wh ft. 5 in. (165.10 cm); Pain 10/10; 01:51 BP 94 / 49; Pulse 75; Resp 16; Pulse Ox 96% ; wh 03:15 BP 117 / 71; Pulse 69; Resp 16; Pulse Ox 99% ; wh 04:30 BP 119 / 62; Pulse 69; Resp 18; Pulse Ox 100% on R/A; wh 00:36 Body Mass Index 29.12 (79.38 kg, 165.10 cm) ED Course: 00:18 Patient arrived in ED. ds1 00:30 Tommy Hartley is Primary Nurse. 00:31 Triage completed. wh 00:37 Manuel Saul MD is Attending Physician. wa 00:38 Patient has correct armband on for positive identification. Placed in gown. Bed in low wh position. Call light in reach. Side rails up X 1. monitor tech on. Pulse ox on. NIBP on. 00:39 Arm band placed on. wh 00:39 Patient maintains SpO2 saturation greater than 95% on room air. wh 00:45 Inserted saline lock: 20 gauge in right antecubital area, using aseptic technique. cm6 04:45 CT Chest W/ Con In Process Unspecified. EDMS 05:17 Eduardo Padilla MD is Hospitalizing Provider. wa 07:02 No provider procedures requiring assistance completed. Patient admitted, IV remains in place. Administered Medications: 00:50 Drug: fentaNYL (PF) 75 mcg Route: IVP; Site: right antecubital; 01:50 Follow up: Response: No adverse reaction 01:50 Follow up: Response: No adverse reaction; Pain is decreased; RASS: Alert and Calm (0) 00:52 Drug: Zofran 4 mg Route: IVP; Site: right antecubital; 01:50 Follow up: Response: No adverse reaction 05:11 Drug: Lovenox 80 mg Route: Sub-Q; Site: right lower abdomen; 06:30 Drug: fentaNYL (PF) 50 mcg Route: IVP; Site: right antecubital; Outcome: 05:18 Decision to Hospitalize by Provider. wa 07:03 Admitted to Tele accompanied by tech, family with patient, via wheelchair, room 425, with chart, Report called to Denisse Spivey RN 07:03 Condition: stable 07:03 Instructed on the need for admit. 07:34 Patient left the ED. iw Signatures: Dispatcher [employer] EDAR QuintanaIsaeli ds1 Tammi Medina RN RN iw Habalo [facility] Manuel Saul MD MD wa Mack, Candace 6
--- NOTE | 2019-07-24 06:00 | EKG ---
Test Date: 2019-07-24 Test Time: 00:26:51 Foxing Cutting Machine Operator: ANA ROSA MEASUREMENT RESULTS: Intervals: Rate: 78 [place]: 140 QRSD: 88 QT: 364 QTc: 414 [place]: P: 78 [place]: 140 QRS: 8 T: 52 INTERPRETIVE STATEMENTS: Normal sinus rhythm Normal ECG Compared to ECG 06/27/2019 16:05:34 No significant changes Electronically Signed On 07-24-19 06:00:05 CLIENT RESOLUTION SPECIALIST by Abhijeet Luciano
[2019-07-24] MEDS ORDERED: ONDANSETRON 4 MG/2 ML VIAL IV PRN (06:19)
[2019-07-24 07:37] VITALS: BMI 29.1
--- NOTE | 2019-07-24 07:42 | RAD REPORT ---
EXAM DESCRIPTION: Irina Single View07/24/2019 7:15 am CLINICAL HISTORY: Chest pain COMPARISON: June 2019 FINDINGS: Mild lingular opacity Right lung appears clear The heart is normal size IMPRESSION: Mild lingular opacity may represent pneumonia or infarct
[2019-07-24] MEDS ORDERED: HYDROCODONE/APAP 5/325 MG TAB PO PRN (08:37)
[2019-07-24] MEDS ORDERED: levoFLOXacin 500 MG TAB PO SCH (09:00)
[2019-07-24] MEDS: APIXABAN 5 MG TABLET PO SCH ×2 (09:11→20:07)
[2019-07-24] MEDS: ASPIRIN EC 81 MG TAB PO SCH (09:12)
--- NOTE | 2019-07-24 10:12 | RAD REPORT ---
EXAM DESCRIPTION: CT - Thorax W/ Con - 07/24/2019 5:54 am ADDENDUM #1 Clinical findings were discussed with and acknowledged by Dr. Manuel Saul on 07/24/2019 4:42 AM CS T. Electronically signed by: Hiram Castellanos MD 07/24/2019 6:33 AM ELECTRICAL SYSTEMS DRAFTER End of Addendum CLINICAL HISTORY: Severe L side chest pain COMPARISON: None. TECHNIQUE: CT CHEST WITH IV CONTRAST on 07/24/2019 12:43 AM ELECTRICAL SYSTEMS DRAFTER. MIPS reconstructions were generated . This exam was performed according to our departmental dose-optimization program, which includes autom ated exposure control, adjustment of the mA and/or kV according to patient size and/or use of iterati ve reconstruction technique. MIP images were generated. FINDINGS: Thoracic aorta is normal in course and caliber without aneurysm or dissection. There is a possible small filling defect in the inferior lingular branch of the left pulmonary artery distally. The heart is normal in size. There is no pericardial effusion. Intrathoracic lymph nodes are not enla rged. There is no pleural effusion, pleural thickening or pneumothorax. Central airways are patent. There i s moderate diffuse centrilobular emphysema. There are scattered pulmonary nodules in the lower lobes measuring up to 4 mm. There is a triangular opacity in the inferior anterior lingula. There are no acute abnormalities within the limited images of the upper abdomen. There are no acute osseous findings. No suspicious bony lesions. IMPRESSION: Small lingular suspected pulmonary embolus with an associated infarct. Electronically signed by: Hiram Castellanos MD 07/24/2019 4:39 AM ELECTRICAL SYSTEMS DRAFTER Due to temporary technical issues with the PACS/Fluency reporting system, reports are being signed by the in house radiologist as a courtesy to ensure prompt reporting. The interpreting radiologist is f ully responsible for the content of the report.
--- NOTE | 2019-07-24 11:13 | RAD REPORT ---
EXAM DESCRIPTION: NM - Vent Perfusion VQ Scan - 07/24/2019 10:56 am CLINICAL HISTORY: RO PE Chest pain shortness of breath COMPARISON: Thorax W/ Con dated 07/24/2019 TECHNIQUE: 20.6mCi Xe-133 gas inhaled and 7.5mCi Tc-MAA IV. Planar ventilation scan was performed in posterior projection after Xe-133 gas inhalation (wash-in, e quilibrium, and wash-out phases) followed by perfusion scan with Tc-MAA IV in multiple projections. Examination is correlated with recent chest radiograph. FINDINGS: Mildly heterogenous ventilation is seen with mild to moderate air trapping. Multiple bilateral mismatched segmental and subsegmental defects are present. IMPRESSION: High probability of pulmonary embolism.
--- NOTE | 2019-07-24 11:22 | RAD REPORT ---
EXAM DESCRIPTION: USExtrem Venous W Compress Bil07/24/2019 11:08 am CLINICAL HISTORY: Leg pain COMPARISON: none FINDINGS: The common femoral, superficial femoral, popliteal and posterior tibial veins bilaterally are compressible and demonstrate augmentation. Doppler demonstrates good flow. IMPRESSION: No evidence of deep venous thrombosis involving either lower extremity.
[2019-07-24] MEDS: MORPHINE 2 MG/ML SYR IV PRN ×2 (11:27→19:40)
--- NOTE | 2019-07-24 11:46 | CON ---
69-year-old woman. Chief Complaint: Chest pain. History Of Present Illness: Ms. Pike had sudden onset of chest pain, 06/28, left side of the summer st. She can point to it, seems to be 1 localized area. It hurts a lot more to take a breath. She w ent to the ER and a CT angio of the chest was read by our outside radiologist as showing a small pulm onary embolus to the artery that goes to the lingula of the left lung. It correlates with where she hurts. She had a similar episode last week, but it seemed to get better in a few days. She attribut ed this to coughing. She has had an upper respiratory infection, bronchitis, and has been coughing a lot, although that mostly got well over the holiday a few weeks ago. There is no previ ous history of pulmonary embolus or deep vein thrombosis. She thinks her mother may have had a blood clot of some type, and she does not remember any details. The patient does not have any diagnosis o f malignancy, diabetes, hypertension, dyslipidemia. She does not use tobacco. Allergies: SHE IS ALLERGIC TO DICLOFENAC, MISOPROSTOL, CEPHALEXIN AND CELECOXIB. SHE SEES DR. MONGE REGULARLY FOR A DIAGNOSIS AND I AM NOT SURE OF THE DIAGNOSIS THAT SHE SEES IN [facility] OR. Outpatient Medications: Liothyronine, levothyroxine, turmeric, Celexa, probiotic, vitamin D, Tylenol No. 2 twice a day and Nexium. Past Medical History: She has a history of anxiety, degenerative disk disease, insomnia, tachycardia, hypothyroidism, ADD, ADHD, and possibly a transient ischemic attack. Surgical History: She has had a cholecystectomy, appendectomy, and thyroidectomy. Physical Examination: Vital Signs: She is 5 feet 5 inches, 175 pounds. General: Alert, oriented, pleasant, not in distre ss. Lungs: Clear. There is no friction rub. Heart: Exam within normal limits. Abdomen: Soft. Extremities: Normal. No cyanosis, clubbing, or edema. Distal pulses are normal. Her electrocardiogram is normal. Cardiac enzymes are normal. Impression: The patient has an apparent pulmonary embolus without a real good explanation for it. I wonder if her thyroidectomy was from thyroid cancer. It could be recurrent in the cause of DVTs. S he may have an inborn error of her clotting system resulting in a pulmonary embolus. There is no obv ious cause. She does need to be anticoagulated. She can use oral anticoagulant if Dr. Ashlee go ses to switch her, right now she is on enoxaparin 80 q.12 h. which is appropriate. I do not think mo re extensive cardiac workup is in order right now and workup to see why she had a pulmonary embolus s eems to be in order. STEPHAN/NGUYEN Voice ID: [id number] Report ID: [id number]
--- NOTE | 2019-07-24 12:21 | P.CNS ---
Date of Consult: 07/24/19 Reason for Consult: Possible pulmonary embolism Chief Complaint: Left-sided pleuritic chest pain History of Present Illness: Patient is 69 years of age with a history of COPD 3 weeks ago she fell sick and was prescribed levofloxacin 750 mg daily for 10 days patient has some fever chills took some steroids and was doing well until yesterday developed sudden onset of left-sided severe pleuritic chest pain denies any fever chills cough sputum hemoptysis. CT scan of the chest showed of wedge-shaped infarct on the left side no other emboli visible V/Q scan was high probability for PE Allergies diclofenac [From Arthrotec 50] Allergy (Severe, Verified 03/13/16 20:52) severe hives/swelling/itching misoprostol [From Arthrotec 50] Allergy (Severe, Verified 03/13/16 21:30) severe hives/swelling/itching cephalexin [From Keflex] Allergy (Mild, Verified 03/13/16 20:52) dizzness, lightheadedness celecoxib [From Celebrex] Allergy (Verified 07/24/19 09:11) Unknown Home Medications: Citalopram Hydrobromide [Celexa] 40 mg PO BEDTIME 02/27/13 Esomeprazole Mag Trihydrate [Nexium] 40 mg PO DAILY 02/27/13 Estazolam [Prosom] 2 mg PO BEDTIME 02/27/13 Propranolol [Inderal*] 20 mg PO NOON 02/27/13 Propranolol [Inderal*] 40 mg PO BEDTIME 02/27/13 Cholecalciferol (Vitamin D3) [Vitamin D 1000 Iu Tab*] 1 tab PO BID 07/24/19 Lactobacillus Acidophilus [Probiotic] 1 cap PO DAILY 07/24/19 Levothyroxine [Synthroid*] 1 tab PO DAILY 07/24/19 - Past Medical/Surgical History Diabetic: No -: Fibromyalgia -: GERD -: Tachycardia -: Degenerative Disc Disease -: Hypothyroidism -: Thyroidectomy -: Neck Fusion X2 -: Digna -: Appy - Family History Father History Unknown: Yes Mother Medical History: Diabetes - Social History Smoking Status: Unknown if ever smoked Alcohol use: No CD- Drugs: No Caffeine use: Yes Place of Residence: Home Review of Systems 10-point ROS is otherwise unremarkable Respiratory: Shortness of Breath, Pleuritic Pain Physical Examination Temp Pulse Resp BP Pulse Ox 97.9 F 74 18 175/74 H 93 07/24/19 12:00 07/24/19 12:00 07/24/19 12:00 07/24/19 12:00 07/24/19 12:00 General: Alert, Oriented x3, Mild distress Neck: Supple Respiratory: Clear to auscultation bilaterally, Expiratory wheezes Cardiovascular: No edema, Normal pulses Gastrointestinal: Normal bowel sounds Laboratory Data (last 24 hrs) 07/24/19 00:40: PT 12.9 H, INR 1.10 07/24/19 00:40: WBC 10.9, Hgb 12.9, Hct 37.8, Plt Count 296 07/24/19 00:40: Sodium 134 L, Potassium 3.6, BUN 13, Creatinine 0.76, Glucose 104, Magnesium 2.1, Total Bilirubin 0.4, AST 14 L, ALT 19, Alkaline Phosphatase 96 - Problems (1) Pulmonary emboli Current Visit: Yes Status: Acute Plan: Patient is 69 years of age admitted with acute onset of left-sided pleuritic chest pain there is no evidence of sepsis she did have a wedge-shaped defect on the CT scan suggestive of pulmonary emboli and was for further confirmed by a high probability V/Q scan is no evidence of DVT patient is hemodynamically stable no or significant risk factors for bleeding chemistries unremarkable patient needs to be anti coagulated the Lovenox Dc I have started her on Eliquis Patient has COPD and has fairly impressive mismatch changes on the V/Q scan doubt if this is false positive the she was already treated with high dose of levofloxacin for 10 days as an outpatient Qualifiers: Chronicity: acute Acute cor pulmonale presence: unspecified
[2019-07-24 12:24] LABS: Urine Appearance CLEAR; Urine Bilirubin NEGATIVE (NEG); Urine Blood NEGATIVE (NEG); Urine Color YELLOW; Urine Glucose NEGATIVE (NEG); Urine Protein NEGATIVE (NEG); Urine Specific Gravity 1.015 (1.005-1.030); Urine Urobilinogen 0.2 mg/dL (0.2-1.0); Urine pH 5.5 (5.0-7.0)
[2019-07-24 12:41] LABS: Urine Bacteria <20 /HPF (<20); Urine Culture Reflex Order REFLEXED; Urine RBC <5 /HPF (NONE SEEN)
[2019-07-24] MEDS ORDERED: ENOXAPARIN 80 MG/0.8 ML SQ SCH (18:00)
--- NOTE | 2019-07-24 18:02 | P.HP ---
Certification for Inpatient Patient admitted to: Inpatient With expected LOS: >2 Midnights Practitioner: I am a practitioner with admitting privileges, knowledge of patient current condition, hospital course, and medical plan of care. Services: Services provided to patient in accordance with Admission requirements found in Title 42 Section 412.3 of the Code of Federal Regulations Patient History Date of Service: 07/24/19 Reason for admission: Left-sided pleuritic chest pain History of Present Illness: MS. GRANT HAS COPD, HTN, DJD, COMES WITH SUDDEN PAIN L SIDE LOWER CHEST ON THE SIDE, COMES TO ER , CT SCAN SHOWED LINGUALR INFARCT THAT WAS CONFIRMED BY VQ SCAN. SHE IS NOW ON ELIQUIS AND DOING WELL. Allergies diclofenac [From Arthrotec 50] Allergy (Severe, Verified 03/13/16 20:52) severe hives/swelling/itching misoprostol [From Arthrotec 50] Allergy (Severe, Verified 03/13/16 21:30) severe hives/swelling/itching cephalexin [From Keflex] Allergy (Mild, Verified 03/13/16 20:52) dizzness, lightheadedness celecoxib [From Celebrex] Allergy (Verified 07/24/19 09:11) Unknown Home Medications: Citalopram Hydrobromide [Celexa] 40 mg PO BEDTIME 02/27/13 Esomeprazole Mag Trihydrate [Nexium] 40 mg PO DAILY 02/27/13 Estazolam [Prosom] 2 mg PO BEDTIME 02/27/13 Propranolol [Inderal*] 20 mg PO NOON 02/27/13 Propranolol [Inderal*] 40 mg PO BEDTIME 02/27/13 Apixaban [Eliquis] 5 mg PO BID #60 tablet 07/24/19 Apixaban [Eliquis] 10 mg PO BID 7 Days #14 tablet 07/24/19 Cholecalciferol (Vitamin D3) [Vitamin D 1000 Iu Tab*] 1 tab PO BID 07/24/19 Lactobacillus Acidophilus [Probiotic] 1 cap PO DAILY 07/24/19 Levothyroxine [Synthroid*] 1 tab PO DAILY 07/24/19 - Past Medical/Surgical History Has patient received pneumonia vaccine in the past: Yes Diabetic: No -: Fibromyalgia -: GERD -: Tachycardia -: Degenerative Disc Disease -: Hypothyroidism -: Thyroidectomy -: Neck Fusion X2 -: Digna -: Appy - Family History Father History Unknown: Yes Mother -: Diabetes - Social History Smoking Status: Former smoker Alcohol use: No CD- Drugs: No Caffeine use: Yes Place of Residence: Home Review of Systems 10-point ROS is otherwise unremarkable Respiratory: Pleuritic Pain, As per HPI Physical Examination - Vital Signs Temperature: 98.2 F Blood Pressure: 129/62 Pulse: 87 Respirations: 18 Pulse Ox (%): 93 - Physical Exam General: Alert, In no apparent distress, Moderate distress HEENT: Atraumatic, PERRLA, Mucous membr. moist/pink, EOMI, Sclerae nonicteric Neck: Supple, 2+ carotid pulse no bruit, No LAD, Without JVD or thyroid abnormality Respiratory: Clear to auscultation bilaterally, Normal air movement Cardiovascular: Regular rate/rhythm, Normal S1 S2 Gastrointestinal: Normal bowel sounds, No tenderness Musculoskeletal: No tenderness Integumentary: No rashes Neurological: Normal gait, Normal speech, Normal strength at 5/5 x4 extr, Normal tone, Normal affect Lymphatics: No axilla or inguinal lymphadenopathy - Studies Laboratory Data (last 24 hrs) 07/24/19 00:40: PT 12.9 H, INR 1.10 07/24/19 00:40: WBC 10.9, Hgb 12.9, Hct 37.8, Plt Count 296 07/24/19 00:40: Sodium 134 L, Potassium 3.6, BUN 13, Creatinine 0.76, Glucose 104, Magnesium 2.1, Total Bilirubin 0.4, AST 14 L, ALT 19, Alkaline Phosphatase 96 Assessment and Plan - Problems (Diagnosis) (1) Pulmonary emboli Current Visit: Yes Status: Acute Plan: THIS CAN BE PROVOKED PE SHE HAD FIRST TIME PAIN LIKE THIS A WEEK AGO WHEN SHE WAS SICK AND DID NOT DO MUCH FOR DAYS AFTER THAT SHE GOT BETTER ON LEVAQUIN I GAVE HER BUT SUDDENLY HAD PAIN AND THAT IS WHEN THE PE HAPPENED FROM LEGS TO LUNGS. SHE WILL BE ON ELIQUIS FOR ABOUT 3 MONTHS AT HIGHER DOSE AND THEN LOWER DOSE PREVENTIVE. I WILL SUPPORT SHORT TERM SHE WAS MEDICALLY DEBILITATED WHEN PE HAPPENED AND IT IS FIRST EPISODE. Qualifiers: Chronicity: acute Acute cor pulmonale presence: unspecified (2) COPD (chronic obstructive pulmonary disease) Current Visit: No Status: Chronic Plan: STABLE FOR NOW. Qualifiers: COPD type: chronic bronchitis Chronic bronchitis type: simple Qualified Code(s): J41.0 - Simple chronic bronchitis - Advance Directives Does patient have a Living Will: Yes Does patient have a Durable POA for Healthcare: Yes
[2019-07-24] MEDS: TRAMADOL HCL 50 MG TAB PO PRN (20:51)
[2019-07-25] MEDS: MORPHINE 2 MG/ML SYR IV PRN (01:15)
[2019-07-25 04:18] LABS: Absolute Lymphocytes (CBC) 1.1 K/uL (0.7-4.9); Basophils % 0.5 % (0-1.3); Hematocrit 33.8 % (36.0-45.0); Lymphocytes % 14.5 % (15.3-44.8); MPV 8.8 fL (7.6-11.3); RBC Red Blood Cell Count 3.56 M/uL (3.86-4.86)
[2019-07-25 04:27] LABS: Potassium 4.6 mmol/L (3.5-5.1)
[2019-07-25 05:18] LABS: Blood Morphology Comment NOT SEEN (NOT SEEN); Platelet Estimate ADEQ
[2019-07-25] MEDS: TRAMADOL HCL 50 MG TAB PO PRN (06:14)
[2019-07-25] MEDS: APIXABAN 5 MG TABLET PO SCH ×2 (08:26→21:04)
[2019-07-25] MEDS: ASPIRIN EC 81 MG TAB PO SCH (08:27)
--- NOTE | 2019-07-25 08:31 | P.PN ---
Subjective Date of Service: 07/25/19 Chief Complaint: Left-sided pleuritic chest pain Patient is still complaining of chest pain very apprehensive nervous concerned about a pulmonary embolism at pain is a to level 5 Review of Systems General: Weakness Respiratory: Shortness of Breath Cardiovascular: Chest Pain Physical Examination - Vital Signs Temperature: 97.7 F Blood Pressure: 124/60 Pulse: 105 Respirations: 16 Pulse Ox (%): 93 - Physical Exam General: Alert, In no apparent distress, Oriented x3 Respiratory: Clear to auscultation bilaterally Cardiovascular: No edema, Regular rate/rhythm, Normal S1 S2 Assessment & Plan - Problems (Diagnosis) (1) Pulmonary emboli Current Visit: Yes Status: Acute Plan: Patient admitted with pulmonary emboli possible left-sided infarct is now fully anti coagulated still complains of pain at the level 5 which is pleuritic intolerant to Mcgee agree with tramadol all and acetaminophen repeat chest x- ray vital signs are all stable oxygenation satisfactory name coughing up some sputum of ordered sputum cultures patient has already had 7 days of 750 Levaquin no evidence of infection right now ambulate possible discharge Qualifiers: Chronicity: acute Acute cor pulmonale presence: unspecified
[2019-07-25] MEDS: LIDOCAINE 4% PATCH TOP SCH (09:08)
--- NOTE | 2019-07-25 10:23 | RAD REPORT ---
EXAM DESCRIPTION: RAD - Chest Pa And Lat (2 Views) - 07/25/2019 9:28 am CLINICAL HISTORY: Left chest pain Chest pain. COMPARISON: Chest Single View dated 07/24/2019; Chest Single View dated 06/27/2019; Chest Pa And Lat (2 Views) dated 06/26/2019; Chest Pa And Lat (2 Views) dated 11/29/2017; Thorax W/ Con dated 07/24/20 19 FINDINGS: Mild COPD is present with ill-defined lingular lung opacity, mildly progressive since comp arative study. Elsewhere, the lungs are clear. The heart is normal in size. No displaced fractures. IMPRESSION: Mild progression in the lingular lung opacity since comparative study.
[2019-07-25] MEDS: TRAMADOL 37.5mg/APAP 325mg PER TAB PO PRN (13:23)
--- NOTE | 2019-07-25 14:56 | EKG ---
Test Date: 2019-07-25 Test Time: 09:12:03 Utility Worker Driver: DAFNE MEASUREMENT RESULTS: Intervals: Rate: 94 FL: 142 QRSD: 86 QT: 356 QTc: 445 [place]: P: 76 FL: 142 QRS: 1 T: 14 INTERPRETIVE STATEMENTS: Normal sinus rhythm Normal ECG Compared to ECG 07/24/2019 00:26:51 No significant changes Electronically Signed On 07-25-19 14:55:06 TAX LAWYER by Brian Silva
[2019-07-25] MEDS: PROPRANOLOL HCL 10 MG TAB PO SCH (15:08)
--- NOTE | 2019-07-25 18:43 | PN ---
Subjective: Ms. Pike continues to have moderate to severe pain in left upper back, where she has pulmonary embolism, secondary diagnosis hypertension, poor pain tolerance, history of migraines, hyp othyroidism, degenerative joint disease, history of anxiety and panic attacks. Physical Examination: General: Patient is not comfortable with some moderate to severe pain in left lower back. Vital Signs: Blood pressure is about 109/57, pulse of 96, O2 saturation of 90%. HEENT: No JVD. No carotid bruits. CHEST: Clear. HEART: Regular. ABDOMEN: No guarding, no rebound, no rigidity. Assessment And Plan: 1.Pulmonary embolism. The most reasonable part is the left lingual and pain location in the back in the same region. Lidocaine patch, tramadol p.r.n. Dr. Rosado is aware talked him couple of times today. We will keep her 1 more day to see how she does. Overall on the pain control [place], her pain tolerance is quite poor. 2.High blood pressure medications are kept on hold if systolic less than 120 and her blood pressure is 104 today systolic. Prognosis is overall fair. MODESTO/NGUYEN Voice ID: [id number] Report ID: [id number]
[2019-07-25] MEDS ORDERED: ESTAZOLAM 2 MG PO SCH (21:00)
[2019-07-25] MEDS ORDERED: HOME MED 1 EA UNK (Citalopram Hydrobromide [Celexa] 40 MG) PO SCH (21:00)
[2019-07-25] MEDS ORDERED: PROPRANOLOL HCL 40 MG TAB PO SCH (21:00)
[2019-07-25] MEDS: VITAMIN D 1000 UNIT TAB PO SCH (21:02)
[2019-07-25 21:27] VITALS: O2SAT 94
[2019-07-26] MEDS: TRAMADOL 37.5mg/APAP 325mg PER TAB PO PRN ×2 (02:23→10:33)
[2019-07-26] MEDS ORDERED: LEVOTHYROXINE SOD 0.075 MG TAB PO SCH (06:30)
[2019-07-26 06:49] LABS: Hematocrit 34.5 % (36.0-45.0); MPV 8.5 fL (7.6-11.3); RBC Red Blood Cell Count 3.59 M/uL (3.86-4.86)
[2019-07-26] MEDS ORDERED: PANTOPRAZOLE 40MG TABLET PO SCH (07:30)
[2019-07-26] MEDS ORDERED: LACTOBACILLUS ACIDOPHILUS PO SCH (09:00)
[2019-07-26] MEDS ORDERED: CITALOPRAM 10 MG TABLET PO SCH (09:00)
[2019-07-26] MEDS ORDERED: HOME MED 1 EA UNK (Esomeprazole Mag Trihydrate [Nexium] 40 MG) PO SCH (09:00)
[2019-07-26] MEDS ORDERED: LACTOBACILLUS/ACIDOPHILUS TAB PO SCH (09:00)
[2019-07-26] MEDS: ASPIRIN EC 81 MG TAB PO SCH (10:22)
[2019-07-26] MEDS: VITAMIN D 1000 UNIT TAB PO SCH (10:23)
--- NOTE | 2019-07-26 10:24 | RAD REPORT ---
EXAM DESCRIPTION: RAD - Chest Pa And Lat (2 Views) - 07/26/2019 9:21 am CLINICAL HISTORY: PEshortness of breath, pulmonary embolism COMPARISON: Chest exam July 25, CT chest PE study July 24 TECHNIQUE: PA and lateral views of the chest were obtained. FINDINGS: The lungs are fibrotic as a baseline. The lingula opacification has improved since prior i maging. No new or progressive lung parenchymal process. Heart size is normal and central vasculatur e is within normal limits. No pleural effusion or pneumothorax seen. No acute bony finding noted. No aortic abnormality. IMPRESSION: Partial clearing of the lung parenchymal opacification anterior left lung base.
[2019-07-26] MEDS: APIXABAN 5 MG TABLET PO SCH (10:33)
[2019-07-26] MEDS: LIDOCAINE 4% PATCH TOP SCH (10:34)
[2019-07-26] MEDS: PROPRANOLOL HCL 10 MG TAB PO SCH (14:59)
[2019-07-26 18:15] VITALS: BP 128/63; TEMP 97.6
== END 2019-07-26 16:03 | disposition home or self-care (01) ==
LOC: ER 00:17 → ERHOLD 06:27 → INTOOBSV 06:27 → 4TH 07:09
PROVIDERS: ADMIT Internal Medicine; ATTEND Internal Medicine
DX: I26.99 Other pulmonary embolism without acute cor pulmonale (principal); J44.9 Chronic obstructive pulmonary disease, unspecified; K21.9 Gastro-esophageal reflux disease without esophagitis; E03.9 Hypothyroidism, unspecified; I10 Essential (primary) hypertension; M19.90 Unspecified osteoarthritis, unspecified site; Z87.891 Personal history of nicotine dependence
CPT/HCPCS: 93005 ×2; 87088; 87070; 85025 ×2; 81001; 80048 ×2; 36415 ×3; 83735; 87205; 85610; 80076; 87077 ×2; 87186 ×2; 85027; 84484 ×3; 83880; 71260; 71045; 71046 ×2; 93970; 78582; 96375; 96372; 96374; 99285; Q9967; J3010; J1650; J2270 ×3; G0378 ×5; J2405 ×2; A9558; A9540; 87086

== ENCOUNTER 2024-07-17 16:21 | Observation (INO) | payer OTHER, MEDICARE ==
[2024-07-17] MEDS ORDERED: NA CHLORIDE 0.9% 500 ML ONE (17:13)
[2024-07-17 17:37] LABS: Absolute Basophils 0.1 K/uL (0-0.5); Absolute Eosinophils 0.1 K/uL (0-0.5); Absolute Lymphocytes (CBC) 1.4 K/uL (0.7-4.9); Absolute Monocytes 0.9 K/uL (0.1-1.3); Absolute Neutrophil 5.7 K/uL (1.8-8.0); Basophils % 0.8 % (0-1.3); Eosinophils % 1.1 % (0-4.4); Hematocrit 40.2 % (36.0-45.0); Hemoglobin 13.3 g/dL (12.0-15.0); Lymphocytes % 17.6 % (15.3-44.8); MCH 32.2 pg (27.0-35.0); MCV 97.7 fL (80-100); MPV 7.7 fL (7.6-11.3); Monocytes % 10.6 % (3.3-12.3); Neutrophils % 69.9 % (41.7-73.7); Platelets 293 thou/uL (152-406); RBC Red Blood Cell Count 4.11 M/uL (3.86-4.86); Red Cell Distribution Width 15.8 % (12.1-15.2)
[2024-07-17 17:48] LABS: Albumin/Globulin Ratio 0.8 (1.1-1.8); Anion Gap 9.8 mEq/L (5.0-15.0); Bilirubin Direct 0.2 mg/dL (0-0.2); Bilirubin Indirect, Calculated 0.6 mg/dL (0.2-0.8); Bilirubin Total 0.8 mg/dL (0.2-1.0); Magnesium 2.2 mg/dL (1.6-2.4); Potassium 3.8 mEq/L (3.5-5.1); Troponin High Sensitivity 23.4 pg/mL (<58.9)
[2024-07-17 18:17] LABS: PT Prothrombin Time 12.9 SECONDS (9.4-12.5); Protime INR 1.16
[2024-07-17 18:24] LABS: Specific Gravity 1.008 (1.005-1.030); Sqamous Epithelial <5 /HPF (None Seen); Urine Bacteria None Seen /HPF (<20); Urine Bilirubin NEGATIVE (Negative); Urine Blood Negative (Negative); Urine Clarity Extremely Turbid (Clear); Urine Color Light-Yellow (Yellow); Urine Crystals Unidentified Few /HPF (None Seen); Urine Culture Reflex Order NOT NEEDED; Urine Glucose NEGATIVE (Negative); Urine Ketones NEGATIVE (Negative); Urine Microscopic Reflex YN ORDER UMIC; Urine Nitrite NEGATIVE (Negative); Urine Protein NEGATIVE (Negative); Urine RBC <5 /HPF (None Seen); Urine Urobilinogen Normal (Normal); Urine WBC <5 /HPF (<5); Urine Yeast (Budding) Moderate /HPF (None Seen)
--- NOTE | 2024-07-17 19:02 | RAD REPORT ---
EXAMINATION: CT HEAD WITHOUT CONTRAST CT CERVICAL SPINE WITHOUT CONTRAST CLINICAL INDICATION: Head and neck pain TECHNIQUE: Axial CT images from the skull base to the vertex without intravenous contrast. Axial CT i mages through the cervical spine were obtained without intravenous contrast. Sagittal and coronal reformatted images were created from the data set. Coronal and sagittal reformatted images were creat ed from the data set. One or more of the following dose reduction techniques were used: Automated exposure control, adjustment of the mA and/or kV according to patient size, and/or iterative reconstr uction. Unless otherwise specified, incidental findings do not require dedicated imaging follow-up. [id number]. Comparison: 2019 FINDINGS: An intracranial bleed is not seen. Mild prominence of the ventricles unchanged likely the sequela of cerebral atrophy. Mild to moderate low-density paraventricular, deep and subcortical white matter likely ischemic khan es secondary to small vessel disease. No extra-axial fluid collection. Fluid within the right maxillary sinus may indicate acute sinusitis. No fracture or dislocation is seen involving the cervical spine. Postsurgical changes C5-C7. Slight anterior subluxation C7 on T1 unchanged.. Mild anterior subluxatio n C3 on C4 and C4 on C5 unchanged. Spondylosis C4 results in moderate right foraminal stenosis. IMPRESSION: No acute intracranial abnormality noted A cervical fracture is not seen. If the patient continues to have symptoms to suggest acute [employer]/spinal pathology then MRI would be rec ommended
--- NOTE | 2024-07-17 19:04 | EDPHYS ---
Physician Documentation [facility] Name: Sole Pike Age: 74 yrs Sex: Female : 1950 Arrival Date: 07/17/2024 Time: 16:21 Bed 5 Private MD: ED Physician Pawan Garza HPI: 07/17 17:10 This 74 yrs old Female presents to ER via Wheelchair with complaints of brayan Weakness - BL leg:unable to stand. 17:10 The patient presents to the emergency department with depression, OPPOSITIONAL DEFIANT brayan SYNDROME. Onset: The symptoms/episode began/occurred 3 day(s) ago. Past psychiatric history: Prior diagnosis: depression. Historical: - Allergies: 16:35 Arthrotec 50; ap3 16:35 Celebrex; ap3 16:35 Keflex; ap3 - PMHx: 16:35 ADD/ADHD; Anxiety; Degenerative disc disease; insomnia; Tachycardia; Thyroid problem; ap3 TIA; Arthritis; - Immunization history:: Adult Immunizations up to date. - Infectious Disease History:: Denies. - Social history:: Smoking status: Patient denies any tobacco usage or history of. ROS: 18:55 Constitutional: Negative for fever, chills, and weight loss, Eyes: Negative for injury, brayan pain, redness, and discharge, ENT: Negative for injury, pain, and discharge, Neck: Negative for injury, pain, and swelling, Cardiovascular: Negative for chest pain, palpitations, and edema, Respiratory: Negative for shortness of breath, cough, wheezing, and pleuritic chest pain, Abdomen/GI: Negative for abdominal pain, nausea, vomiting, diarrhea, and constipation, : Negative for injury, bleeding, discharge, and swelling, Skin: Negative for injury, rash, and discoloration, Neuro: Negative for headache, weakness, numbness, tingling, and seizure, Psych: Negative for depression, anxiety, suicide ideation, homicidal ideation, and hallucinations, Allergy/Immunology: Negative for hives, rash, and allergies, Endocrine: Negative for neck swelling, polydipsia, polyuria, polyphagia, and marked weight changes, Hematologic/Lymphatic: Negative for swollen nodes, abnormal bleeding, and unusual bruising, 18:55 MS/extremity: Positive for decreased range of motion, pain, of the right leg, Exam: 18:55 Constitutional: This is a well developed, well nourished patient who is awake, alert, brayan and in no acute distress. Head/Face: Normocephalic, atraumatic. Eyes: Pupils equal round and reactive to light, extra-ocular motions intact. Lids and lashes normal. Conjunctiva and sclera are non-icteric and not injected. Cornea within normal limits. Periorbital areas with no swelling, redness, or edema. ENT: Nares patent. No nasal discharge, no septal abnormalities noted. Tympanic membranes are normal and external auditory canals are clear. Oropharynx with no redness, swelling, or masses, exudates, or evidence of obstruction, uvula midline. Mucous membranes moist. Neck: Trachea midline, no thyromegaly or masses palpated, and no cervical lymphadenopathy. Supple, full range of motion without nuchal rigidity, or vertebral point tenderness. No Meningismus. Chest/axilla: Normal chest wall appearance and motion. Nontender with no deformity. No lesions are appreciated. Cardiovascular: Regular rate and rhythm with a normal S1 and S2. No gallops, murmurs, or rubs. Normal PMI, no JVD. No pulse deficits. Respiratory: Lungs have equal breath sounds bilaterally, clear to auscultation and percussion. No rales, rhonchi or wheezes noted. No increased work of breathing, no retractions or nasal flaring. Abdomen/GI: Soft, non-tender, with normal bowel sounds. No distension or tympany. No guarding or rebound. No evidence of tenderness throughout. Female : Normal external genitalia. Skin: Warm, dry with normal turgor. Normal color with no rashes, no lesions, and no evidence of cellulitis. Neuro: Awake and alert, GCS 15, oriented to person, place, time, and situation. Cranial nerves II-XII grossly intact. Motor strength 5/5 in all extremities. Sensory grossly intact. Cerebellar exam normal. Normal gait. Psych: Awake, alert, with orientation to person, place and time. Behavior, mood, and affect are within normal limits. 18:55 ECG was reviewed by the Attending Physician. 18:55 Back: pain, that is moderate, of the lumbar area, left low back and right low back, ROM is normal, normal spinal alignment noted, CVA tenderness, is absent, 18:55 Musculoskeletal/extremity: Extremities: all appear grossly normal, with no appreciated pain with palpation, ROM: limited active range of motion, limited passive range of motion, limited active range of motion due to pain, limited passive range of motion due to pain, in the right leg, Circulation is intact in all extremities. DVT Exam: no swelling, negative Homans' sign noted on exam, no appreciated bluish discoloration, no erythema, no increased warmth, pain, tenderness, Vital Signs: 16:32 BP 187 / 100; Pulse 95; Resp 17; Temp 98; Pulse Ox 98% ; Weight 80.74 kg; Height 5 ft. ap3 4 in. ; 16:37 BP 180 / 98; ap3 17:15 BP 134 / 73; Pulse 70; Resp 12; Pulse Ox 97% on R/A; cm10 19:44 BP 173 / 89; Pulse 74; Resp 16 S; Pulse Ox 94% on R/A; ay 21:00 BP 160 / 87; Pulse 77; Resp 17 S; Pulse Ox 95% on R/A; ha1 16:32 Body Mass Index 30.55 (80.74 kg, 162.56 cm) ap3 Sajan Coma Score: 18:55 Eye Response: spontaneous(4). Motor Response: obeys commands(6). Verbal Response: brayan oriented(5). Total: 15. MDM: 16:44 Medical Screening Exam initiated brayan 18:59 Differential diagnosis: depression. Data reviewed: vital signs, nurses notes, EMS brayan record, EKG, radiologic studies, CT scan, plain films. Consideration of Admission/Observation Escalation of care including admission/observation considered. I considered the following discharge prescriptions or medication management in the emergency department Medications were administered in the Emergency Department. See MAR. Independent interpretation of the following test(s) in the Emergency Department EKG: See my EKG interpretation above. Test considered but Not performed: MRI: no mri spine. Historians other than the Patient: Spouse/Significant Other: spouse informed. Care significantly affected by the following chronic conditions: Hypertension, Obesity, ddd, adhd, thyroid. 19:00 Data reviewed: lab test result(s), CBC, electrolytes, hepatic panel. [facility] 07/17 17:10 Order name: Basic Metabolic Panel; Complete Time: 18:51 [facility] 07/17 17:10 Order name: CBC with Diff; Complete Time: 18:51 [facility] 07/17 17:10 Order name: LFT's; Complete Time: 18:51 [facility] 12 17:10 Order name: Magnesium; Complete Time: 18:51 [facility] 12 17:10 Order name: NT PRO-BNP; Complete Time: 18:51 [facility] 07/17 17:10 Order name: PT-INR; Complete Time: 18:51 [facility] 07/17 17:10 Order name: Troponin HS; Complete Time: 18:51 [facility] 07/17 17:10 Order name: Lipase; Complete Time: 18:51 [facility] 07/17 17:10 Order name: Urinalysis w/ reflexes; Complete Time: 18:51 [facility] 07/17 19:12 Order name: Basic Metabolic Panel EDMS 07/17 19:12 Order name: Basic Metabolic Panel EDMS 07/17 19:12 Order name: CBC with Automated Diff EDMS 07/17 19:12 Order name: CBC with Automated Diff EDMS 07/17 17:10 Order name: XRAY Chest (1 view); Complete Time: 19:10 [facility] 07/17 17:54 Order name: Chest Abd Pelvis Wo Con; Complete Time: 19:10 EDRI 04 17:55 Order name: Head C Spine Mpr Wo Con; Complete Time: 19:10 EDMS /04 18:53 Order name: Knee Right 3 View XRAY; Complete Time: 20:18 [facility] 07/17 19:12 Order name: US Extremity Venous W Compression Angel; Complete Time: 20:18 [facility] 07/17 17:10 Order name: Cardiac monitoring; Complete Time: 17:24 [facility] 07/17 17:10 Order name: EKG - Nurse/Tech; Complete Time: 17:24 [facility] 07/17 17:10 Order name: IV Saline Lock; Complete Time: 17:24 [facility] 07/17 17:10 Order name: Labs collected and sent; Complete Time: 17:24 [facility] 07/17 17:10 Order name: O2 Per Protocol; Complete Time: 17:10 [facility] 07/17 17:10 Order name: O2 Sat Monitoring; Complete Time: 17:10 [facility] 07/17 17:33 Order name: Labs - recollect needed: recollect blue top; Complete Time: 17:54 bd EC:55 Rate is 72 beats/min. Rhythm is regular. QRS Jennings is Normal. MT interval is normal. QRS brayan interval is normal. QT interval is normal. No Q waves. T waves are Normal. No ST changes noted. Clinical impression: NSR w/ Non-specific ST/T Changes and No evidence of ischemia. Interpreted by me. Reviewed by me. Administered Medications: 17:24 Drug: NS 0.9% IV 500 ml IV at bolus once; to be given as a bolus over 30 minutes Route: cm10 IV; Rate: bolus; Site: left forearm; 17:54 Follow up: Response: No adverse reaction; IV Status: Completed infusion; IV Intake: cm10 500ml 19:30 Drug: Famotidine IVP 20 mg IVP once; dilute with 10 mL 0.9% NaCl; give over 2 minutes ha1 Route: IVP; Site: right antecubital; 20:00 Follow up: Response: No adverse reaction; Marked relief of symptoms ha1 19:32 Drug: Ondansetron IVP 4 mg IVP once; over 2 minutes Route: IVP; Site: right antecubital;ha1 20:00 Follow up: Response: No adverse reaction; Marked relief of symptoms ha1 19:34 Drug: HYDROmorphone IVP 0.5 mg IVP once Route: IVP; Site: right antecubital; ha1 20:00 Follow up: Response: No adverse reaction; Marked relief of symptoms; Pain is decreased; ha1 RASS: Alert and Calm (0) 19:36 Drug: Decadron - Dexamethasone IVP 10 mg IVP once Route: IVP; Site: right antecubital; ha1 20:00 Follow up: Response: No adverse reaction; Marked relief of symptoms ha1 Disposition Summary: 07/17/24 19:03 Hospitalization Ordered Notes: Hospitalization Status: Observation brayan Provider: Eduardo Padilla cha Location: Telemetry/MedSurg (observation) brayan Condition: Stable brayan Problem: new brayan Symptoms: have improved brayan Bed/Room Type: Standard brayan Room Assignment: 217(07/17/24 19:25) kmf Diagnosis - Pain in right leg brayan - Pain in right knee brayan - Low back pain brayan - Injury of muscle, fascia and tendon of abdomen, lower back and pelvis brayan Forms: - Medication Reconciliation Form brayan - SBAR form brayan - Leadership Thank You Letter brayan Signatures: Dispatcher [employer] Suzette Lange Corey, MD MD cha Prokisch, Amanda RN RN ap3 Marian Holloway, RN RN ha1 Rebeca Fletcher, RN RN cm10 Dejah Anne km Corrections: (The following items were deleted from the chart) 17:10 17:10 BASIC METABOLIC PANEL+C.LAB.BRZ ordered. EDMS EDMS 17:10 17:10 CBC+H.LAB.BRZ ordered. EDMS EDMS 17:10 17:10 HEPATIC FUNCTION+C.LAB.BRZ ordered. EDMS EDMS 17:10 17:10 MAGNESIUM+C.LAB.BRZ ordered. EDMS EDMS 17:10 17:10 PROBNP+C.LAB.BRZ ordered. EDMS EDMS 17:10 17:10 PROTIME (+INR)+COAG.LAB.BRZ ordered. EDMS EDMS 17:10 17:10 Troponin High Sensitivity+C.LAB.BRZ ordered. EDMS EDMS 17:10 17:10 LIPASE+C.LAB.BRZ ordered. EDMS EDMS 17:10 17:10 Urinalysis+U.LAB.BRZ ordered. EDMS EDMS 17:10 17:10 Head C Spine Cap Wo Con+CT.RAD.BRZ ordered. EDMS EDMS 19:13 19:13 Extrem Venous W Compression Angel+US.RAD.BRZ ordered. EDMS EDMS 19:25 19:03 brayan kmf
--- NOTE | 2024-07-17 19:04 | ER ---
Nurse's Notes [facility] Name: Sole Pike Age: 74 yrs Sex: Female : 1950 Arrival Date: 07/17/2024 Time: 16:21 Bed 5 Private MD: Diagnosis: Pain in right leg;Pain in right knee;Low back pain;Injury of muscle, fascia and tendon of abdomen, lower back and pelvis Presentation: 07/17 16:32 Chief complaint: Patient states: she has been weak and unable to stand since Monday ap3 07/14/2024. Patient reports being ill for a few weeks, and having knee pain in a knee she had replaced in the past. patient reports a headache and nausea as well. Coronavirus screen: At this time, the client does not indicate any symptoms associated with coronavirus-19. Ebola Screen: No symptoms or risks identified at this time. No acute neurological deficit is noted. Initial Sepsis Screen: Does the patient meet any 2 criteria? HR > 90 bpm. Does the patient have a suspected source of infection? No. Patient's initial sepsis screen is negative. Risk Assessment: Do you want to hurt yourself or someone else? Patient reports no desire to harm self or others. Onset of symptoms was July 14, 2024. 16:32 Method Of Arrival: Wheelchair ap3 16:32 Acuity: PATRIC 3 ap3 Triage Assessment: 16:37 General: Appears uncomfortable, Behavior is calm, cooperative, appropriate for age. ap3 Pain: Complains of pain in head, right leg and left leg. Neuro: Level of Consciousness is awake, alert, obeys commands, Oriented to person, place, time, situation, Appropriate for age Speech is normal. Cardiovascular: Patient's skin is warm and dry. Respiratory: Airway is patent Respiratory effort is even, unlabored, Respiratory pattern is regular, symmetrical. Historical: - Allergies: 16:35 Arthrotec 50; ap3 16:35 Celebrex; ap3 16:35 Keflex; ap3 - PMHx: 16:35 ADD/ADHD; Anxiety; Degenerative disc disease; insomnia; Tachycardia; Thyroid problem; ap3 TIA; Arthritis; - Immunization history:: Adult Immunizations up to date. - Infectious Disease History:: Denies. - Social history:: Smoking status: Patient denies any tobacco usage or history of. Screenin:37 Abuse screen: Denies threats or abuse. Nutritional screening: No deficits noted. ap3 Tuberculosis screening: No symptoms or risk factors identified. 17:25 [facility] ED Fall Risk Assessment (Adult) History of falling in the last 3 months, cm10 including since admission No falls in past 3 months (0 pts) Confusion or Disorientation No (0 pts) Intoxicated or Sedated No (0 pts) Impaired Gait Yes (1 pt) Mobility Assist Device Used Yes (1 pt) Altered Elimination No (0 pt) Score/Fall Risk Level 0 - 2 = Low Risk Oriented to surroundings, Maintained a safe environment, Hourly rounding (assess needs \T\ fall precautionary measures) done. Assessment: 19:20 General: Appears uncomfortable, Behavior is calm, cooperative. Pain: Complains of pain ay in lateral aspect of right knee Pain radiates to lumbar area Pain currently is 7 out of 10 on a pain scale. Quality of pain is described as aching, sharp. Neuro: Level of Consciousness is awake, alert, obeys commands, Oriented to person, place, time, situation. Neuro: Reports headache weakness in Bilateral leg weakness. Cardiovascular: Capillary refill < 3 seconds Patient's skin is warm and dry. Respiratory: Airway is patent Respiratory effort is even, unlabored, Respiratory pattern is regular, symmetrical. GI: No signs and/or symptoms were reported involving the gastrointestinal system. Abdomen is round obese. : No signs and/or symptoms were reported regarding the genitourinary system. EENT: No signs and/or symptoms were reported regarding the EENT system. Derm: Skin is pink, warm \T\ dry. Musculoskeletal: Circulation, motion, and sensation intact. 19:50 Reassessment: Patient and/or family updated on plan of care and expected duration. Pain ha1 level reassessed. Patient is alert, oriented x 3, equal unlabored respirations, skin warm/dry/pink. pain 2/10 Patient states feeling better. Patient states symptoms have improved. 21:00 Reassessment: Patient and/or family updated on plan of care and expected duration. Pain ha1 level reassessed. Patient is alert, oriented x 3, equal unlabored respirations, skin warm/dry/pink. Vital Signs: 16:32 BP 187 / 100; Pulse 95; Resp 17; Temp 98; Pulse Ox 98% ; Weight 80.74 kg; Height 5 ft. ap3 4 in. ; 16:37 BP 180 / 98; ap3 17:15 BP 134 / 73; Pulse 70; Resp 12; Pulse Ox 97% on R/A; cm10 19:44 BP 173 / 89; Pulse 74; Resp 16 S; Pulse Ox 94% on R/A; ay 21:00 BP 160 / 87; Pulse 77; Resp 17 S; Pulse Ox 95% on R/A; ha1 16:32 Body Mass Index 30.55 (80.74 kg, 162.56 cm) ap3 Wilmore Coma Score: 18:55 Eye Response: spontaneous(4). Motor Response: obeys commands(6). Verbal Response: brayan oriented(5). Total: 15. ED Course: 16:25 Patient arrived in ED. ra3 16:35 Triage completed. ap3 16:38 Arm band placed on right wrist. ap3 16:44 Pawan Garza MD is Attending Physician. brayan 17:08 Rebeca Fletcher, RN is Primary Nurse. cm10 17:24 Basic Metabolic Panel Sent. cm10 17:24 CBC with Diff Sent. cm10 17:24 LFT's Sent. cm10 17:24 Magnesium Sent. cm10 17:24 NT PRO-BNP Sent. cm10 17:24 PT-INR Sent. cm10 17:24 Lipase Sent. cm10 17:24 Initial lab(s) drawn, by me, sent to lab. EKG done, by ED staff, reviewed by Pawan Garza MD. Inserted saline lock: 20 gauge in left forearm, using aseptic technique. Blood collected. Flushed with 10 mL NS. 17:25 Patient has correct armband on for positive identification. Bed in low position. Call cm10 light in reach. Side rails up X2. Provided Education on: ER process and procedures. Client placed on continuous cardiac and pulse oximetry monitoring. NIBP monitoring applied. clinical research monitor on. 17:48 XRAY Chest (1 view) In Process Unspecified. EDMS 18:15 Urinalysis w/ reflexes Sent. ko1 18:53 Chest Abd Pelvis Wo Con In Process Unspecified. EDMS 18:53 Head C Spine Mpr Wo Con In Process Unspecified. EDMS 19:01 Eduardo Padilla MD is Hospitalizing Provider. brayan 19:08 Knee Right 3 View XRAY In Process Unspecified. EDMS 19:20 No provider procedures requiring assistance completed. IV discontinued, intact, ha1 bleeding controlled, No redness/swelling at site. Pressure dressing applied. 19:25 Inserted saline lock: 22 gauge in right antecubital area, using aseptic technique. ha1 Flushed with 10 mL NS. 19:53 US Extremity Venous W Compression Angel In Process Unspecified. EDMS Administered Medications: 17:24 Drug: NS 0.9% IV 500 ml IV at bolus once; to be given as a bolus over 30 minutes Route: cm10 IV; Rate: bolus; Site: left forearm; 17:54 Follow up: Response: No adverse reaction; IV Status: Completed infusion; IV Intake: cm10 500ml 19:30 Drug: Famotidine IVP 20 mg IVP once; dilute with 10 mL 0.9% NaCl; give over 2 minutes ha1 Route: IVP; Site: right antecubital; 20:00 Follow up: Response: No adverse reaction; Marked relief of symptoms ha1 19:32 Drug: Ondansetron IVP 4 mg IVP once; over 2 minutes Route: IVP; Site: right antecubital;ha1 20:00 Follow up: Response: No adverse reaction; Marked relief of symptoms ha1 19:34 Drug: HYDROmorphone IVP 0.5 mg IVP once Route: IVP; Site: right antecubital; ha1 20:00 Follow up: Response: No adverse reaction; Marked relief of symptoms; Pain is decreased; ha1 RASS: Alert and Calm (0) 19:36 Drug: Decadron - Dexamethasone IVP 10 mg IVP once Route: IVP; Site: right antecubital; ha1 20:00 Follow up: Response: No adverse reaction; Marked relief of symptoms ha1 Medication: 17:25 VIS not applicable for this client. cm10 Intake: 17:54 IV: 500ml; Total: 500ml. cm10 Outcome: 19:03 Decision to Hospitalize by Provider. brayan 22:00 Admitted to Med/surg accompanied by medardo, via stretcher, room 217, with chart, ha1 22:00 Condition: stable 22:00 Instructed on the need for admit, Demonstrated understanding of instructions, 22:01 Patient left the ED. ha1 Signatures: Dispatcher [employer] EDMS Pawan Garza MD MD cha Prokisch, Amanda RN RN ap3 Amie, Marian, RN RN ha1 Radha Schwab, RN RN ko1 Rebeca Fletcher, RN RN cm10 Amarilys Kapadia ra3 Homa Arce, RN RN ay
[2024-07-17] MEDS ORDERED: HYDROMORPHONE HCL 0.5 MG/0.5 ML INJ ONE (19:06)
[2024-07-17] MEDS ORDERED: ONDANSETRON 4 MG/2 ML VIAL ONE (19:06)
[2024-07-17] MEDS ORDERED: FAMOTIDINE 20 MG/2 ML VIAL IV ONE (19:06)
[2024-07-17] MEDS ORDERED: dexAMETHasone 10 MG/ML VIAL ONE (19:06)
[2024-07-17] MEDS ORDERED: ACETAMINOPHEN 325 MG TABLET PO PRN ×2 (19:08→22:26)
[2024-07-17] MEDS ORDERED: MORPHINE 2 MG/ML SYR IV PRN (19:08)
[2024-07-17] MEDS ORDERED: ONDANSETRON 4 MG/2 ML VIAL IV PRN (19:08)
--- NOTE | 2024-07-17 19:08 | RAD REPORT ---
EXAM: CT CHEST, ABDOMEN AND PELVIS WITHOUT CONTRAST CLINICAL INDICATION: Chest and abdominal pain TECHNIQUE: CT chest, abdomen and pelvis was performed, without IV contrast, as per department protoco l. Axial, sagittal and coronal reconstructions were obtained. One or more of the following dose reduction techniques were used: Automated exposure control, adjustment of the mA and/or kV according to the patient size, and/or iterative reconstruction. Unless otherwise specified, incidental findings do not require dedicated imaging follow-up. The lack of IV and oral contrast limits evaluation of the mediastinum, jade, vessels, organs and brigitte l. COMPARISON: 2019 CT chest FINDINGS: Moderate COPD. Mild scarring within the lungs mild right lower lobe bronchiectasis. Coronary arterial calcifications. No mediastinal or hilar lymphadenopathy seen. No pleural effusion. No pericardial effusion. Liver, spleen, pancreas, adrenals kidneys and bladder appear grossly normal Cholecystectomy No adnexal mass. Atherosclerosis. There is no evidence of diverticulitis Mild anterior subluxation L3 on L4. IMPRESSION: COPD No acute abnormalities displayed
--- NOTE | 2024-07-17 19:09 | RAD REPORT ---
Procedure: Chest Single View HISTORY: Cough COMPARISON: September 2023 FINDINGS: The lungs appear clear of acute infiltrate. Lungs are moderately hyperaerated. No significant pleural effusion noted. The heart is normal size. IMPRESSION: No acute abnormality is displayed.
[2024-07-17] MEDS ORDERED: DIAZEPAM 5 MG TABLET PO PRN (19:10)
--- NOTE | 2024-07-17 19:36 | RAD REPORT ---
Exam:Knee Right 3 View HISTORY: Right knee pain FINDINGS: No fracture or dislocation seen Right knee prosthesis in good position without evidence of loosening. No significant joint effusion seen
[2024-07-17] MEDS: NA CHLORIDE 0.9% 1,000 ML IV SCH ×2 (20:00→23:23)
--- NOTE | 2024-07-17 20:03 | RAD REPORT ---
EXAMINATION: US bilateral LOWER EXTREMITY VENOUS DOPPLER CLINICAL INDICATION: Leg pain TECHNIQUE: Sonographic evaluation of the veins of the lower extremity bilaterally formed.Grayscale, c olor and spectral analysis performed on all vessels COMPARISON: 2022 FINDINGS: The common femoral, superficial femoral, greater saphenous, popliteal and posterior tibial veins bila terally are compressible and demonstrate augmentation. Doppler demonstrates good flow. IMPRESSION: No evidence of deep venous thrombosis involving either lower extremity
[2024-07-17] MEDS: NA CHLORIDE 0.9% 1,000 ML ONE (23:14)
[2024-07-18] MEDS: dexAMETHasone 10 MG/ML VIAL IV SCH (01:00)
[2024-07-18] MEDS ORDERED: dexAMETHasone 4 MG/ML VIAL IV SCH (01:00)
[2024-07-18] MEDS: dexAMETHasone 4 MG/ML VIAL ONE (01:52)
[2024-07-18 06:10] LABS: Absolute Lymphocytes (CBC) 0.5 K/uL (0.7-4.9); Absolute Monocytes 0.1 K/uL (0.1-1.3); Absolute Neutrophil 6.9 K/uL (1.8-8.0); Basophils % 0.1 % (0-1.3); Hematocrit 36.6 % (36.0-45.0); Hemoglobin 12.7 g/dL (12.0-15.0); Lymphocytes % 6.1 % (15.3-44.8); MCH 33.7 pg (27.0-35.0); MCHC 34.7 g/dL (32.0-36.0); MPV 7.8 fL (7.6-11.3); Monocytes % 0.8 % (3.3-12.3); Platelets 263 thou/uL (152-406); RBC Red Blood Cell Count 3.78 M/uL (3.86-4.86); Red Cell Distribution Width 15.5 % (12.1-15.2)
[2024-07-18 06:22] LABS: Anion Gap 8.9 mEq/L (5.0-15.0); Potassium 3.9 mEq/L (3.5-5.1)
[2024-07-18 07:56] LABS: Blood Morphology Comment NOT SEEN (NOT SEEN); Differential Total Cells Count 100; Lymphocytes 6 % (15-42); Monocytes 0 % (0-10); Platelet Estimate ADEQ; Segmented Neutrophils 94 % (40-80); Toxic Granulation 1+
[2024-07-18] MEDS: dexAMETHasone 4 MG/ML VIAL IV SCH (08:17)
[2024-07-18] MEDS: FERROUS SULFATE 325 MG TAB PO SCH (09:00)
[2024-07-18 09:27] VITALS: O2SAT 93
--- NOTE | 2024-07-18 09:56 | RAD REPORT ---
EXAMINATION: MRI LUMBAR SPINE WITHOUT CONTRAST CLINICAL INDICATION: Radiculopathy. Unable to walk or stand. TECHNIQUE: Multiplanar multisequence MR images were obtained of the lumbar spine without intravenous contrast. Unless otherwise specified, incidental findings do not require dedicated imaging follow-up. [id number]. COMPARISON: No prior exam. FINDINGS: For purposes of this dictation, it is assumed that there are 5 non rib-bearing lumbar type vertebrae, and the most caudal fully segmented lumbar vertebra is labeled L5. L1-2 unremarkable Slight anterior subluxation L2 on L3. Mild spondylosis at this level. Mild anterior subluxation L4 3 on L4.. 2.2 x 1.1 x 1.7 cm right posterior lateral disc sequestration L3-4 extends superiorly. The superior a spect of the disc lies at the upper level of L3. There is marked compression of the right anterior aspect of the thecal sac. In addition disc bulge, ligamentum flavum and facet hypertrophy L3-4. The thecal sac at this level me asures 8 mm. Disc bulge with annular fissure L4-5. Ligamentum flavum and facet hypertrophy. Thecal sac measures 8 mm. The neural foramina are patent. L5-S1 unremarkable No significant abnormal signal within the bones. IMPRESSION: Large right posterior lateral disc sequestration L3-4 extending superiorly. Marked compression of the right anterior aspect of the thecal sac
[2024-07-18] MEDS: ONDANSETRON 4 MG/2 ML VIAL IV PRN (11:35)
[2024-07-18] MEDS: MORPHINE 2 MG/ML SYR IV PRN (11:39)
[2024-07-18] MEDS ORDERED: VILANTEROL IH PRN (12:52)
[2024-07-18] MEDS ORDERED: FLUTICASONE IH PRN (12:52)
--- NOTE | 2024-07-18 13:03 | P.SSS ---
Patient History Date of Service: 07/18/24 Reason for admission: WEAK LEGS, CAN'T GET OFF THE COMMODE History of Present Illness: BECCA HAS HAD COPD, HTN, DJD,ETC IN THE PAST. SHE HAS HAD LUMBAR PAIN WITH RADICULAR SS ON R SIDE AND I HAD GIVEN HER STEROIDS FOR PAIN AND RADICULOPATHY. SHE FINISHED BUT STILL COULD NOT GET OFF COMMODE. SHE REPORTS TO ER. DR. SIMONS DOES A LOT OF CT SCANS ON HER. NOTHING MAJOR FOUND. MRI TODAY LS SPINE SHOWS LUMBAR SPINE STENOSIS. I CLEAR HER FOR REHAB AND CONSULT DR. NOE ALSO. Allergies diclofenac [From Arthrotec 50] Allergy (Severe, Verified 07/17/24 22:48) severe hives/swelling/itching misoprostol [From Arthrotec 50] Allergy (Severe, Verified 07/17/24 22:48) severe hives/swelling/itching cephalexin [From Keflex] Allergy (Mild, Verified 07/17/24 22:48) dizzness, lightheadedness acetaminophen [From [place]] Allergy (Verified 07/17/24 22:48) Itching celecoxib [From Celebrex] Allergy (Verified 07/17/24 22:48) Unknown hydrocodone [From [place]] Allergy (Verified 07/17/24 22:48) Itching Home Medications: Citalopram Hydrobromide [Celexa] 40 mg PO BEDTIME 02/27/13 Estazolam [Prosom] 2 mg PO BEDTIME 02/27/13 Propranolol [Inderal*] 20 mg PO NOON 02/27/13 Propranolol [Inderal*] 40 mg PO BEDTIME 02/27/13 Cholecalciferol (Vitamin D3) [Vitamin D 1000 Iu Tab*] 1 tab PO BID 07/24/19 Lactobacillus Acidophilus [Probiotic] 1 cap PO DAILY 07/24/19 Levothyroxine [Synthroid*] 1 tab PO DAILY 07/24/19 Apixaban [Eliquis *] 2.5 mg PO BID 07/17/24 Ezetimibe [Zetia*] 10 mg PO DAILY 07/17/24 Ferrous Sulfate [Iron] 325 mg PO SEECOM 07/17/24 Fluticasone/Vilanterol [Breo Ellipta 100-25 Mcg Inhalr] 2 sprays IH BIDP PRN 07/17/24 Furosemide [Lasix*] 20 mg PO DAILY 07/17/24 Liothyronine Sodium [Cytomel] 5 mg PO DAILY 07/17/24 Tramadol HCl [Ultram] 50 mg PO BIDP PRN 07/17/24 - Past Medical/Surgical History Has patient received pneumonia vaccine in the past: Yes Diabetic: No -: Fibromyalgia -: GERD -: Tachycardia -: Degenerative Disc Disease -: Hypothyroidism -: Anxiety,ADD/ADHD -: Thyroidectomy -: Neck Fusion X2 -: Digna -: Appy - Family History Mother -: Diabetes - Social History Smoking Status: Former smoker Alcohol use: No CD- Drugs: No Caffeine use: Yes Place of Residence: Home Review of Systems 10-point ROS is otherwise unremarkable Physical Examination - Vital Signs Temperature: 98 F Blood Pressure: 131/67 Pulse: 90 Respirations: 18 Pulse Ox (%): 94 - Physical Exam General: Mild distress, Obese HEENT: Atraumatic, PERRLA, Mucous membr. moist/pink, EOMI, Sclerae nonicteric Neck: Supple, 2+ carotid pulse no bruit, No LAD, Without JVD or thyroid abnormality Respiratory: Clear to auscultation bilaterally, Normal air movement Cardiovascular: Regular rate/rhythm, Normal S1 S2 Gastrointestinal: Normal bowel sounds, No tenderness Musculoskeletal: No tenderness Integumentary: No rashes Neurological: Normal gait, Normal speech, Normal strength at 5/5 x4 extr, Normal tone, Normal affect, Abnormal strength (AMAURI LOWER LIMBS 3/5 POWER. FLACCID.) Lymphatics: No axilla or inguinal lymphadenopathy - Studies Laboratory Data (last 24 hrs) 07/17/24 07/17/24 07/17/24 17:54 17:22 17:22 WBC 8.20 Hgb 13.3 Hct 40.2 Plt Count 293 PT 12.9 H INR 1.16 Sodium 133 L Potassium 3.8 BUN 11 Creatinine 0.77 Glucose 96 Magnesium 2.2 Total Bilirubin 0.8 AST 23 ALT 25 Alkaline Phosphatase 68 Lipase 30 - Diagnosis (Problem(s)) (1) Paraparesis Current Visit: Yes Status: Acute Plan: ABOVE. SPINAL STENOSIS POSSIBLE CAUSE CONSULT REHAB CONSULT DR. NOE. CONSULT DR. PEDRO. NO CLEAR SIGNS OF OTHER NEUROPATHY. Treatment Summary: PATIENT SHOULD GO TO REHAB FLOOR TODAY. SHE IS STABLE. NOT MUCH TO BE DONE URGENTLY. DR. NOE CONSULTED. FOLLOWING IS HER HISTORY. Allergies Lyrica NSAIDs CeleBREX Arthrotec CURAPHEN Statins = MYALGIA Codeine Augmentin = YEAST INFECTION Keflex = DIZZY Drug Intolerances or Problem List 2018 HTN (hypertension) [I10] 2018 History of hypothyroidism [Z86.39] 2018 B12 deficiency [E53.8] 2018 Vitamin D deficiency [E55.9] 2018 Fibromyalgia [M79.7] 2019 Pulmonary emboli [I26.99 0.3] TWICE , FIRST TIME NO REASON, AND SECOND TIME WITH SURGERY. TWICE , FIRST TIME NO REASON, AND SECOND TIME WITH SURGERY. 2022 COPD (chronic obstructive pulmonary disease) [J44.9 0.3] [address] [R93.1] 1134 1134 2021 Statin intolerance [Z78.9] 202 Iron deficiency anemia [D50.9] diallo done low ferritin no celic or protein issues CRC DONE. SHE DOES NOT WANT TO GO. diallo done low ferritin no celic or protein issues CRC DONE. SHE DOES NOT WANT TO GO. 4 Aortic stenosis [I35.0] mild mild 2024 Coronary arteriosclerosis [I25.10] CATH DONE. 60% LATERAL, 30% LAD CATH DONE. 60% LATERAL, 30% LAD 2024 Diastolic heart failure [I50.30 0.4] 4 Morbid obesity [E66.01 0.2] 2023 BMI 32.0-32.9,adult [Z68.32] 2023 Lumbar radicular pain [M54.16] - Disposition Disposition: ROUTINE DISCHARGE
[2024-07-18] MEDS: APIXABAN 2.5 MG TABLET PO SCH (20:21)
[2024-07-18] MEDS: CITALOPRAM 10 MG TABLET PO SCH (20:22)
[2024-07-18] MEDS: VITAMIN D 1000 UNIT TAB PO SCH (20:22)
[2024-07-18] MEDS: PROPRANOLOL HCL 40 MG TAB PO SCH (20:22)
[2024-07-18] MEDS: ESTAZOLAM 2 MG PO SCH (20:25)
[2024-07-18 20:37] VITALS: BP 146/63; TEMP 98.3
[2024-07-18] MEDS ORDERED: HOME MED 1 EA UNK (Citalopram Hydrobromide [Celexa] 40 MG Tablet) PO SCH (21:00)
[2024-07-18] MEDS: DIAZEPAM 5 MG TABLET PO PRN (21:55)
[2024-07-18] MEDS: TRAMADOL HCL 50 MG TAB PO PRN (21:55)
--- NOTE | 2024-07-18 22:21 | CON ---
Reason For Consultation: Consultation called because of lower back pain radiating into her right low er extremity. History Of Present Illness: Ms. Pike is a 74-year-old patient with chronic low back pain of at l east 4 years' duration with radiation down the right more than left lower extremity, who was doing fa irly well with that up to a few weeks ago when she began having more back pain radiating down the ant erior thigh across the knee into the leg and foot. Despite worsening, the patient was able to do wel l until Monday when she attempted to use the bathroom after standing and was unable to get up due to severe pain radiating from the back into the lower extremity. She was assisted out of the restroom a nd was able to see her primary care physician, Dr. Padilla, and he had come to the [facility] for admission and evaluation. On 07/18/2024, lumbar spine MRI identified a 2.2 x 1.1 x 1.7 right pos terolateral disk sequestration of L3-4, which extended superiorly to the superior aspect of the disk, lies in the upper level of L3. There was marked compression of the right anterior aspect of the the minerva sac. In addition, there was disc bulge at L3-4 with the thecal sac measuring 8 mm. At L4-5, the re is an 8 mm thecal sac with patent neural foramina. L5-S1 unremarkable. Impression was a large ri ght posterior disk sequestration of L3-4 extending superiorly, markedly compressing the right anterio r aspect of the thecal sac. She said she did receive Tylenol and Tylenol 3, which did help the pain somewhat. In addition, she had Decadron, but the pain is still largely persistent. Past Medical History: Degenerative joint disease with right knee replacement, anxiety, attention def icit disorder, insomnia, hypothyroidism, reported TIAs. Allergies: CELEBREX, KEFLEX, ARTHROTEC, NORCO. Family History: Noncontributory. Social History: No alcohol, tobacco, or IV drug use. Current Medications: Tylenol 650 mg every 6 hours as needed, Eliquis 2.5 mg twice daily, vitamin D 1 000 units twice daily, Celexa 40 mg at bedtime, Decadron 40 mg IV every 8 hours, Valium 5 mg at bedti me, Zetia 10 mg daily, ferrous sulfate 325 mg daily, Lasix 20 mg daily, Lactinex daily, Synthroid 0.0 75 mg daily, Cytomel 5 mcg daily, Zofran 4 mg every 6 hours as needed, propranolol 20 mg at noon and 40 mg at bedtime, tramadol 50 mg twice daily as needed. Review of Systems: She reports severe back pain radiating down the right anterior thigh across the knee and the right le g in addition to severe weakness, unable to stand due to severe weakness in the right lower extremity . She denies incontinence of bowel or bladder. Physical Examination: Vital Signs: Blood pressure 134/69, pulse ranged 90 to 102, respiratory rate 16 to 20, temperature 9 8.1, oxygen saturation 94% on room air. General/HEENT: Ms. Pike is resting in bed. She reports pain perhaps around 6/10 or 7/10, but is otherwise normocephalic, atraumatic. Sclerae anicteric. Oropharynx pink and moist. Neck: Supple. Chest: Clear. Heart: Regular. Extremities: No significant edema, cyanosis, or clubbing. She does have well-healed knee replacemen t scar going across the right knee from up to down. Neurological: Cranial nerves, no focal deficits. Upper extremities: No focal deficits there in ter ms of sensation, coordination, and strength. Lower extremities: She has significant pain related to full exertion in the right lower extremity around 2 to 3 due to severe pain proximally an d distally. Left side, intact in terms of strength and sensation. She has stocking-glove loss in th e right lower extremity compared to the left. Coordination: Upper extremities intact, on the left i ntact. At this point, she is not ambulated because of severe pain. Laboratory Studies: Complete blood count with differential essentially unremarkable. INR 1.16. Her chemistry shows slightly low sodium of 135, otherwise essentially unremarkable with blood glucose st ill ranging from 96 to 225. Her liver function studies are normal. Her urinalysis shows extreme tur bidity, pH 8, moderate budding yeast. Otherwise unremarkable. Doppler study of both lower extremiti es showed no evidence of deep vein thrombi on either extremity. Head and cervical spine CT scan show ed no acute intracranial abnormalities. Cervical fracture is not seen. It is noted that she has had anterior diskectomy and fusion done previously. It involves level C5-C7. The radiologist notes karlie e slight anterior subluxation of C7 on to T1 and it is unchanged. Chest x-ray, done on 07/17/2024, n o acute abnormality displayed. Assessment: Ms. Pike is a 74-year-old patient who has a large right posterolateral disk sequestr ation at L3-4, extending superiorly, causing marked compression of the right anterior aspect of the t hecal sac. She has significant pain going down the right leg in the L4 distribution with some involv ement in L3. She may be evaluated by Neurosurgery for possible decompression. Dr. Pb Javier will be contacted by Dr. Padilla for possible decompression. At this point, she may start gabapentin 300 m g twice daily and continue with the Decadron as indicated and at this point, may hold off aggressive physical therapy until the disk protrusion or sequestration is addressed by Spine Surgery. She may h ave therapy following surgery. OLIVA/NGUYEN Voice ID: [id number] Report ID: [id number]
[2024-07-18 22:49] VITALS: BMI 31.0
[2024-07-19] MEDS ORDERED: LIOTHYRONINE SOD 5 MCG TAB PO SCH (06:30)
[2024-07-19] MEDS ORDERED: LEVOTHYROXINE SOD 0.075 MG TAB PO SCH (06:30)
[2024-07-19] MEDS ORDERED: FUROSEMIDE 20 MG TABLET PO SCH (09:00)
[2024-07-19] MEDS ORDERED: HOME MED 1 EA UNK (Lactobacillus Acidophilus [Probiotic] Capsule) PO SCH (09:00)
[2024-07-19] MEDS ORDERED: LACTOBACILLUS/ACIDOPHILUS TAB PO SCH (09:00)
[2024-07-19] MEDS ORDERED: EZETIMIBE 10 MG TAB PO SCH (09:00)
[2024-07-19] MEDS ORDERED: FERROUS SULFATE 325 MG TAB PO SCH (09:00)
[2024-07-19] MEDS ORDERED: PROPRANOLOL HCL 10 MG TAB PO SCH (12:00)
== END 2024-07-18 22:25 | disposition short-term general hospital (02) ==
LOC: ER 16:21 → 2ND 19:06
PROVIDERS: ADMIT Internal Medicine; ATTEND Internal Medicine
DX: M48.061 Spinal stenosis, lumbar region without neurogenic claudication (principal); M54.50 Low back pain, unspecified; M79.604 Pain in right leg; M19.90 Unspecified osteoarthritis, unspecified site; E03.9 Hypothyroidism, unspecified; F98.8 Other specified behavioral and emotional disorders with onset usually occurring in childhood and adolescence; Z96.651 Presence of right artificial knee joint; Z86.73 Personal history of transient ischemic attack (TIA), and cerebral infarction without residual deficits; Z88.8 Allergy status to other drugs, medicaments and biological substances; Z88.6 Allergy status to analgesic agent; Z88.5 Allergy status to narcotic agent
CPT/HCPCS: 85025 ×2; 81001; 80048 ×2; 36415; 83735; 85610; 80076; 84484; 83690; 83880; 70450; 71250; 72125; 74176; 71045; 73562; 93970; 72148; 97110; 97161; 97530 ×2; 96375; 96374; 99285; J1100 ×4; J2270; J1171; J2405 ×2; J7040; J7030 ×2; G0378

== ENCOUNTER 2024-07-25 10:33 | Inpatient (IN) | payer OTHER, MEDICARE ==
[2024-07-25 10:54] VITALS: BMI 30.2
[2024-07-25] MEDS ORDERED: FUROSEMIDE 20 MG TABLET PO ONE (12:15)
[2024-07-25] MEDS: PROPRANOLOL HCL 10 MG TAB PO SCH (14:54)
[2024-07-25] MEDS: ACETAMINOPHEN 325 MG TABLET PO PRN (14:55)
[2024-07-25 18:40] LABS: Specific Gravity 1.026 (1.005-1.030); Sqamous Epithelial <5 /HPF (None Seen); Urine Bacteria None Seen /HPF (<20); Urine Bilirubin NEGATIVE (Negative); Urine Blood Negative (Negative); Urine Clarity Clear (Clear); Urine Color Yellow (Yellow); Urine Culture Reflex Order REFLEXED; Urine Glucose NEGATIVE (Negative); Urine Ketones NEGATIVE (Negative); Urine Micro Reflex YN NO BILL MICROSCOPIC; Urine Mucus 1+ /HPF (None Seen); Urine Nitrite NEGATIVE (Negative); Urine Protein TRACE (Negative); Urine RBC <5 /HPF (None Seen); Urine Urobilinogen Normal (Normal); Urine WBC 20-50 /HPF (<5); Urine pH 5.5 (5.0-7.0)
[2024-07-25] MEDS: EZETIMIBE 10 MG TAB PO SCH (19:34)
[2024-07-25] MEDS: APIXABAN 2.5 MG TABLET PO SCH (19:35)
[2024-07-25] MEDS: MAGNESIUM OXIDE 400 MG TAB PO SCH (19:35)
[2024-07-25] MEDS: ENSURE ENLIVE 237 ML CAN PO SCH (19:36)
[2024-07-25] MEDS ORDERED: ESTAZOLAM 2 MG PO SCH (21:00)
[2024-07-25] MEDS: CYCLOBENZAPRINE 10 MG TAB PO PRN (21:41)
[2024-07-25] MEDS: ESTAZOLAM 2 MG PO SCH (21:41)
--- NOTE | 2024-07-26 03:40 | HP ---
Date of Admission: 07/25/2024 Time Of Service: 1 p.m. Chief Complaint: "I had a slipped disk in my back and surgery, I would like to get stronger now." History Of Present Illness: Ms. Pike is a 74-year-old right-handed patient with histor y of degenerative disk disease, right knee replacement, anxiety, attention deficit disorder, hypothyr oidism, and insomnia along with multiple TIAs, who was admitted to [facility] initially on 09/17/2023 with worsening back pain which had been present for many years, at least 4 years. The pain was radiating down the right more than left lower extremity and she did manage to ambulate with assi stive device including a walker and was managing the pain until Monday before admission when she was attempting to use bathroom and after standing, was unable to get up because of severe pain radiating down the back into the lower extremities. She was eventually seen by primary care physician, Dr. Khan, and was sent to [facility], where on 07/18/2024, imaging of the lumbar spine by MRI iden tified a 2.2 x 1.1 x 1.7 right posterior lateral disk herniation with sequestration of the L3-4 roots extending superiorly to the upper portion of the lumbar region. There was marked compression of the right anterior aspect of the thecal sac. At L4-5, there is an 8 mm thecal sac with patent neural fo ramina. L5-S1 unremarkable. Due to the finding of severe nerve root compression, the patient was de termined to be an appropriate candidate for surgery and Dr. Pb Javier was contacted. She was put on Decadron and Tylenol No. 3 and he saw the patient and eventually did surgical decompression by min imally invasive approach. Following surgery, she is now postop and is admitted to the inpatient reha bilitation unit to help her recover towards her prior level of functioning while she has her comorbid conditions that have been mentioned above and managed. Admission to prison or discharge ho la would likely result in her not improving well and may result in her readmission and not having her to return to her prior level of functioning as affectively as possible. Past Medical History: As noted above. Allergies: CELEBREX, KEFLEX, NORCO. Family History: Noncontributory. Social History: No alcohol, tobacco, or IV drug use. She lives independently with family checking o n her and in a single-story home. Current Medications: Tylenol 650 mg every 4 hours as needed, Eliquis 2.5 mg twice daily, Celexa 40 m g daily, Flexeril 5 mg 3 times daily, Zetia 10 mg at bedtime, Lasix 20 mg daily, Synthroid 0.075 mg d aily, Cytomel 5 mcg daily, magnesium oxide 400 mg twice daily, Hemocyte Plus 1 tablet with breakfast, Ensure Enlive 237 mL twice daily, Protonix 40 mg daily, Inderal 20 mg twice daily, Senokot-S 2 at be dtime, tramadol 50 mg every 6 hours as needed. Review of Systems: She reports some mild myalgias, arthralgias in the back and legs, some muscle spasms that are recurri ng. She did receive muscle relaxant which is helpful for that. Mild difficulty sleeping and mild di fficulty with bowel movements. Otherwise, on review of systems, no significant new issues. Laboratory Studies: White blood cell count 7.5, hemoglobin 12.7, hematocrit 36.6, platelets 263. So dium 135, potassium 3.9, chloride 102, carbon dioxide 28, BUN 16, creatinine 0.97, glucose ranged fro m 96 to 225, calcium 9.0, AST 23, ALT 25, alkaline phosphatase 68. Urinalysis shows 250 esterase, 20 to 50 white blood cells, trace protein, otherwise unremarkable. As noted, the lumbar spine x-ray do nh on 07/18/2024 identified a large right posterior lateral disk sequestration of 3-4 extending super iorly. There was marked compression of the right anterior aspect of the thecal sac. Current Level Of Functioning: Eating independent, grooming supervision, bathing moderate assistance, dressing maximal assistance for lower body and upper body moderate assistance, toileting maximum ass istance. For bed, chair, wheelchair transfer, moderate assistance. Toilet transfer, moderate assist ance. Ambulation, moderate assistance, not yet attempted stairs. Physical Examination: Vital Signs: Blood pressure 116/64, pulse 81, respiratory rate of 16, temperature 97.8, oxygen satur ation 95%. General: Ms. Pike is resting comfortably in her bed. Mild discomfort in the lower back. Mild m uscle spasms have improved. HEENT: She is otherwise normocephalic, atraumatic. Sclerae anicteric. Oropharynx pink, moist. Neck: Supple. Chest: Clear. Heart: Regular. Extremities: No significant clubbing, cyanosis, or edema noted. Neurologic: She has no focal cranial nerve, sensory, coordination, or motor deficits. Rehab And Medical Assessment And Plan: Ms. Pike is admitted to the inpatient rehabilitation unit with impairment category 09, orthopedic and impairment group code 08.9, other orthopedic. Etiologic diagnosis, L3-L4 lumbar disk herniation with canal wall stenosis and radiculopathy, status post deco mpression. She has ongoing pain, numbness, tingling, burning sensations in the lower extremities. S he has decreased mobility, decreased physical functioning, hypothyroidism, hypertension, mild malnutr ition, back muscle spasms, mild constipation, depression, anxiety, mild GE reflux. Plan: 1.She will have physical and occupational therapy 3 hours a day, 5 of 7 days. 2.Continue tramadol which is p.r.n. for pain along with Tylenol. She does have Flexeril for muscle spasms, which is helpful. Celexa will be also helpful for anxiety and pain, Synthroid for hypothyroi dism, Cytomel in addition for the hypothyroidism, magnesium oxide for muscle spasms, Hemocyte Plus fo r malnutrition along with Ensure Enlive, Protonix for GE reflux, Inderal for heart rate control, Seno froylan for constipation, Eliquis 2.5 mg twice daily for DVT prophylaxis. Comorbidities That Are Impacting Rehabilitation: She has noted some back muscle spasms and pain in t he lower back, but that has improved significantly. She does have depression and anxiety. Medicatio ns will be continued for management. She had constipation and again addressed with stool softeners a nd laxatives. Heart rate control is present. She does have DVT prophylaxis on board and had a fall risk, fall precautions will be adhered to at all times. Rehab Specific Plan: Ms. Pike will have physical and occupational therapy 3 hours a day, 5 of 7 days to improve her ability to transfer from bed to a chair to a walker and wheelchair, to mobilize b oth walker and wheelchair, transfer from toilet to a tub to perform toileting and showering and to be able to mobilize 250 feet with rolling walker and up and down 10 steps with bilateral handrails to p erform cognitive functioning all independently. Ms. Pike has a good understanding of the process of admission to the inpatient rehabilitation [facility] and how she will benefit from physical and occupational therapy. She will have 24 hours a day, 7 days a week skilled rehabilitation and nursing, daily physician evaluation and management, and [facility] evaluation and management for discharge planning, home equipment, continuing therapy, an d follow up with the surgeon and primary care physician, Dr. Padilla, and surgeon is Dr. Pb Javier. Barriers To Discharge: There is a potential for worsening pain, infection at surgical site, for fall s and injury with bleeding at noncompressible sites such as had in abdominal area since she is on the Eliquis. What cautions to be adhered to at all time is at this point, it is likely she will do very well. She says pain is significantly improved since removal of the disk herniation by arthroscopic type surgery. Length Of Stay: About 10 days. Disposition: Home with continued therapy via Home Health. Prognosis: Good. Code Status: Full code. Rehab Specific Goals: 1.Become independent with upper and lower body dressing, donning and doffing of footwear. 2.Independently mobilizes a rolling walker 250 feet. 3.Independently mobilize a wheelchair 250 feet. 4.Independently go up and down 10 steps with bilateral handrails. 5.Independently perform all cognitive functioning. 6.Independently perform all activities of daily living. The above goals were reviewed with Ms. Pike and she is in agreement. By signing this document, I acknowledge I personally performed a full physical examination on Ms. Billy aranda no later than 24 hours after her admission to the inpatient rehabilitation facility and determi grace that she is able to tolerate the above course of treatment at an intensive level for reasonable p eriod of time. A detailed individualized plan of care for her will be completed by hospital day 4 based on the preadmission screen, history and phy sical, and therapy evaluations. OLIVA/NGUYEN Voice ID: [id number]
[2024-07-26 05:50] LABS: Absolute Eosinophils 0.2 K/uL (0-0.5); Absolute Lymphocytes (CBC) 1.1 K/uL (0.7-4.9); Absolute Neutrophil 4.1 K/uL (1.8-8.0); Basophils % 0.4 % (0-1.3); Hematocrit 37.9 % (36.0-45.0); Hemoglobin 12.9 g/dL (12.0-15.0); Lymphocytes % 17.4 % (15.3-44.8); MCH 32.9 pg (27.0-35.0); MCHC 34.1 g/dL (32.0-36.0); MCV 96.7 fL (80-100); MPV 7.9 fL (7.6-11.3); Monocytes % 15.8 % (3.3-12.3); Neutrophils % 63.4 % (41.7-73.7); Platelets 218 thou/uL (152-406); RBC Red Blood Cell Count 3.92 M/uL (3.86-4.86); Red Cell Distribution Width 15.6 % (12.1-15.2)
[2024-07-26 06:06] LABS: Albumin 2.6 g/dL (3.4-5.0); Anion Gap 6.8 mEq/L (5.0-15.0); Potassium 3.8 mEq/L (3.5-5.1); Prealbumin 17.2 mg/dL (20-40)
[2024-07-26] MEDS: CRANBERRY FRUIT EXTRACT 425 MG CAPSULE PO SCH (07:13)
[2024-07-26] MEDS: LEVOTHYROXINE SOD 0.075 MG TAB PO SCH (07:13)
[2024-07-26] MEDS: FE SULF/FA/VIT B COMP & C TAB PO SCH (07:14)
[2024-07-26] MEDS: LIOTHYRONINE SOD 5 MCG TAB PO SCH (07:14)
[2024-07-26] MEDS: CITALOPRAM 10 MG TABLET PO SCH (07:14)
[2024-07-26] MEDS: PANTOPRAZOLE 40MG TABLET PO SCH (07:14)
[2024-07-26] MEDS: TRAMADOL HCL 50 MG TAB PO PRN (08:45)
[2024-07-26] MEDS: FUROSEMIDE 20 MG TABLET PO SCH (08:47)
[2024-07-26] MEDS ORDERED: ENSURE HIGH PROTEIN 237 ML CAN PO PRN (13:23)
--- NOTE | 2024-07-26 14:11 | P.RH.PN ---
Estimated Length of Stay: 12 Expected Discharge Date: 08/07/24 Discharge Disposition Plan: Home Family Support: Yes Intermediate Goal: Mobility, Transfers, Self Care Vital Signs: Last Vital Signs Temp 98.3 F 07/26/24 07:00 Pulse 82 07/26/24 08:47 Resp 18 07/26/24 09:45 BP 132/67 07/26/24 08:47 Pulse Ox 97 07/26/24 09:45 Laboratory: Laboratory Last Values WBC 6.50 thou/uL (4.3-10.9) 07/26/24 05:23 RBC 3.92 M/uL (3.86-4.86) 07/26/24 05:23 Hgb 12.9 g/dL (12.0-15.0) 07/26/24 05:23 Hct 37.9 % (36.0-45.0) 07/26/24 05:23 MCV 96.7 fL (80-100) 07/26/24 05:23 MCH 32.9 pg (27.0-35.0) 07/26/24 05:23 MCHC 34.1 g/dL (32.0-36.0) 07/26/24 05:23 RDW 15.6 % (12.1-15.2) H 07/26/24 05:23 Plt Count 218 thou/uL (152-406) 07/26/24 05:23 MPV 7.9 fL (7.6-11.3) 07/26/24 05:23 Neutrophils % 63.4 % (41.7-73.7) 07/26/24 05:23 Lymphocytes % 17.4 % (15.3-44.8) 07/26/24 05:23 Monocytes % 15.8 % (3.3-12.3) H 07/26/24 05:23 Eosinophils % 3.0 % (0-4.4) 07/26/24 05:23 Basophils % 0.4 % (0-1.3) 07/26/24 05:23 Absolute Neutrophils 4.1 K/uL (1.8-8.0) 07/26/24 05:23 Absolute Lymphocytes 1.1 K/uL (0.7-4.9) 07/26/24 05:23 Absolute Monocytes 1.0 K/uL (0.1-1.3) 07/26/24 05:23 Absolute Eosinophils 0.2 K/uL (0-0.5) 07/26/24 05:23 Absolute Basophils 0.0 K/uL (0-0.5) 07/26/24 05:23 Sodium 135 mEq/L (136-145) L 07/26/24 05:23 Potassium 3.8 mEq/L (3.5-5.1) 07/26/24 05:23 Chloride 100 mEq/L (98-107) 07/26/24 05:23 Carbon Dioxide 32 mEq/L (21-32) 07/26/24 05:23 Anion Gap 6.8 mEq/L (5.0-15.0) 07/26/24 05:23 BUN 18 mg/dL (7-18) 07/26/24 05:23 Creatinine 0.66 mg/dL (0.55-1.02) 07/26/24 05:23 Est GFR (CKD-EPI) 91 ml/min (=/>90) 07/26/24 05:23 Glucose 101 mg/dL (74-106) 07/26/24 05:23 Calcium 9.5 mg/dL (8.5-10.1) 07/26/24 05:23 Magnesium 2.0 mg/dL (1.6-2.4) 07/26/24 05:23 Albumin 2.6 g/dL (3.4-5.0) L 07/26/24 05:23 Prealbumin 17.2 mg/dL (20-40) L 07/26/24 05:23 Urine Color Yellow (Yellow) 07/25/24 18:15 Urine Clarity Clear (Clear) 07/25/24 18:15 Urine pH 5.5 (5.0-7.0) 07/25/24 18:15 Ur Specific [place] 1.026 (1.005-1.030) 07/25/24 18:15 Glucose (UA)(Auto) Negative (Negative) 07/25/24 18:15 Urine Ketones Negative (Negative) 07/25/24 18:15 Urine Blood Negative (Negative) 07/25/24 18:15 Urine Nitrite Negative (Negative) 07/25/24 18:15 Urine Bilirubin Negative (Negative) 07/25/24 18:15 Urine Urobilinogen Normal (Normal) 07/25/24 18:15 Ur Leukocyte Esterase 250 Riley/uL (Negative) H 07/25/24 18:15 Urine RBC <5 /HPF (None Seen) 07/25/24 18:15 Urine WBC 20-50 /HPF (<5) H 07/25/24 18:15 Ur Squamous Epith Cells <5 /HPF (None Seen) 07/25/24 18:15 Urine Bacteria None seen /HPF (<20) 07/25/24 18:15 Hyaline Casts 0-5 /LPF (None Seen) 07/25/24 18:15 Urine Mucus 1+ /HPF (None Seen) 07/25/24 18:15 Urine Culture Reflexed Reflexed 07/25/24 18:15 Urine Total Protein Trace (Negative) H 07/25/24 18:15 Weight: 176 lb Closed Surgical Incision Present: Yes Negative Pressure Wound Therapy Present: No Physician Update: Mod assist with bed mobility. Now has her back brace. Min a ssist to sit to stand. RW 40' with min assist. Labs reviewed and are stable. Still keeping her spinal precautions. Summary: Patient's care plan and long-term goals have been reviewed and revised as necessary. Please see the Rehabilitation Signature page for all necessary signatures.
--- NOTE | 2024-07-26 14:47 | P.HP ---
Patient History Date of Service: 07/26/24 Reason for admission: REHAB AFTER L SPINE SURGERY History of Present Illness: BECCA HAS HAD COPD, CHF,DJD, OA, HISTORY OF PE, UNPROVOKED, COMES TO [facility] LAST WEEK SHE COULD NOT GET UP OFF COMMMODE. SHE HAS PAIN IN THE BACK. I ORDERED MRI OF L SPINE AND FOUND THAT SHE HAS LARGE DISK HERNIATION AT L3-4 AND THAT COMPROMISED HER LOWER LIMBS. SHE HAD URGENT SURGERY BY DR. NOE IN [place] AND SHE DID REALLY WELL. SHE IS SENT TO REHAB HERE NOW. FOLLOWING IS HER HISTORY FROM OUR RECORDS. Allergies Lyrica NSAIDs CeleBREX Arthrotec CURAPHEN Statins = MYALGIA Codeine Augmentin = YEAST INFECTION Keflex = DIZZY Drug Intolerances or Problem List 2018 HTN (hypertension) [I10] 2018 History of hypothyroidism [Z86.39] 2018 B12 deficiency [E53.8] 2018 Vitamin D deficiency [E55.9] 2018 Fibromyalgia [M79.7] 2019 Pulmonary emboli [I26.99 0.3] TWICE , FIRST TIME NO REASON, AND SECOND TIME WITH SURGERY. TWICE , FIRST TIME NO REASON, AND SECOND TIME WITH SURGERY. 2021 COPD (chronic obstructive pulmonary disease) [J44.9 0.3] [address] [R93.1] 1134 1134 2021 Statin intolerance [Z78.9] 2022 Iron deficiency anemia [D50.9] diallo done low ferritin no celic or protein issues CRC DONE. SHE DOES NOT WANT TO GO. diallo done low ferritin no celic or protein issues CRC DONE. SHE DOES NOT WANT TO GO. 2023 Aortic stenosis [I35.0] mild mild 2023 Coronary arteriosclerosis [I25.10] CATH DONE. 60% LATERAL, 30% LAD CATH DONE. 60% LATERAL, 30% LAD 4 Diastolic heart failure [I50.30 0.4] 2023 Morbid obesity [E66.01 0.2] 2023 BMI 32.0-32.9,adult [Z68.32] 2023 Lumbar radicular pain [M54.16] Allergies diclofenac [From Arthrotec 50] Allergy (Severe, Verified 07/17/24 22:48) severe hives/swelling/itching misoprostol [From Arthrotec 50] Allergy (Severe, Verified 12/04/24 22:48) severe hives/swelling/itching cephalexin [From Keflex] Allergy (Mild, Verified 07/17/24 22:48) dizzness, lightheadedness acetaminophen [From [place]] Allergy (Verified 07/17/24 22:48) Itching celecoxib [From Celebrex] Allergy (Verified 07/17/24 22:48) Unknown hydrocodone [From [place]] Allergy (Verified 07/17/24 22:48) Itching Home Medications: Citalopram Hydrobromide [Celexa] 40 mg PO BEDTIME 02/27/13 Estazolam [Prosom] 2 mg PO BEDTIME 02/27/13 Propranolol [Inderal*] 20 mg PO NOON 02/27/13 Propranolol [Inderal*] 40 mg PO BEDTIME 02/27/13 Cholecalciferol (Vitamin D3) [Vitamin D 1000 Iu Tab*] 1 tab PO BID 07/24/19 Lactobacillus Acidophilus [Probiotic] 1 cap PO DAILY 07/24/19 Levothyroxine [Synthroid*] 1 tab PO DAILY 07/24/19 Apixaban [Eliquis *] 2.5 mg PO BID 07/17/24 Ezetimibe [Zetia*] 10 mg PO DAILY 07/17/24 Ferrous Sulfate [Iron] 325 mg PO SEECOM 07/17/24 Fluticasone/Vilanterol [Breo Ellipta 100-25 Mcg Inhalr] 2 sprays IH BIDP PRN 07/17/24 Furosemide [Lasix*] 20 mg PO DAILY 07/17/24 Liothyronine Sodium [Cytomel] 5 mcg PO DAILY 07/17/24 Tramadol HCl [Ultram] 50 mg PO BIDP PRN 07/17/24 - Past Medical/Surgical History Has patient received pneumonia vaccine in the past: Yes Diabetic: No -: Fibromyalgia -: GERD -: Tachycardia -: Degenerative Disc Disease -: Hypothyroidism -: Anxiety,ADD/ADHD -: Thyroidectomy -: Neck Fusion X2 -: Digna -: Appy -: Right Knee arthroplasty - Family History Mother -: Diabetes - Social History Smoking Status: Former smoker Alcohol use: No CD- Drugs: No Caffeine use: Yes Place of Residence: Home Review of Systems 10-point ROS is otherwise unremarkable General: Weakness Physical Examination - Vital Signs Temperature: 98.3 F Blood Pressure: 132/67 Pulse: 82 Respirations: 18 Pulse Ox (%): 97 - Physical Exam General: Mild distress HEENT: Atraumatic, PERRLA, Mucous membr. moist/pink, EOMI, Sclerae nonicteric Neck: Supple, 2+ carotid pulse no bruit, No LAD, Without JVD or thyroid abnormality Respiratory: Clear to auscultation bilaterally, Normal air movement Cardiovascular: Regular rate/rhythm, Normal S1 S2 Gastrointestinal: Normal bowel sounds, No tenderness Musculoskeletal: No tenderness Integumentary: No rashes Neurological: Normal gait, Normal speech, Normal strength at 5/5 x4 extr, Normal tone, Normal affect Lymphatics: No axilla or inguinal lymphadenopathy - Studies Laboratory Data (last 24 hrs) 07/26/24 07/26/24 05:23 05:23 WBC 6.50 Hgb 12.9 Hct 37.9 Plt Count 218 Sodium 135 L Potassium 3.8 BUN 18 Creatinine 0.66 Glucose 101 Magnesium 2.0 Assessment and Plan - Problems (Diagnosis) (1) Lumbar disc prolapse with compression radiculopathy Current Visit: Yes Status: Acute Plan: SP SURGERY DOING WELL. CONT PT MAY GO HOME IN A WEEK OR TWO. (2) Hypertension Current Visit: No Status: Chronic Qualifiers: Hypertension type: primary hypertension Qualified Code(s): I10 - Essential (primary) hypertension (3) COPD (chronic obstructive pulmonary disease) Current Visit: No Status: Chronic Qualifiers: COPD type: unspecified COPD Qualified Code(s): J44.9 - Chronic obstructive pulmonary disease, unspecified - Advance Directives Does patient have a Living Will: Yes Does patient have a Durable POA for Healthcare: Yes
[2024-07-28] MEDS: DOCUSATE NA/SENNA CONC 1 TAB PO PRN (20:20)
--- NOTE | 2024-07-29 13:08 | P.PN ---
Subjective Date of Service: 07/29/24 Chief Complaint: REHAB AFTER L SPINE SURGERY Subjective: No C/O voiced THERE IS NO UTI SS. NO FEVER. Review of Systems 10-point ROS is otherwise unremarkable General: Weakness Physical Examination - Vital Signs Temperature: 96.9 F Blood Pressure: 140/65 Pulse: 87 Respirations: 16 Pulse Ox (%): 91 - Physical Exam General: Mild distress HEENT: Atraumatic, PERRLA, EOMI Neck: Supple, JVD not distended Respiratory: Clear to auscultation bilaterally, Normal air movement Cardiovascular: Regular rate/rhythm, Normal S1 S2 Gastrointestinal: Normal bowel sounds, No tenderness Musculoskeletal: No tenderness Integumentary: No rashes Neurological: Normal speech, Normal tone, Normal affect Lymphatics: No axilla or inguinal lymphadenopathy - Studies Microbiology Data (last 24 hrs): 07/25/24 18:15 Clean Catch Urine [place] Count - Final BETWEEN 10,000 & 100,000 CFU/ML 07/25/24 18:15 Clean Catch Urine - Final Klebsiella Pneumoniae Medications List Reviewed: Yes Assessment And Plan - Current Problems (Diagnosis) (1) Lumbar disc prolapse with compression radiculopathy Current Visit: Yes Status: Acute Plan: SP SURGERY DOING WELL. CONT PT MAY GO HOME IN A WEEK OR TWO. (2) Hypertension Current Visit: No Status: Chronic Qualifiers: Hypertension type: primary hypertension Qualified Code(s): I10 - Essential (primary) hypertension (3) COPD (chronic obstructive pulmonary disease) Current Visit: No Status: Chronic Qualifiers: COPD type: unspecified COPD Qualified Code(s): J44.9 - Chronic obstructive pulmonary disease, unspecified (4) Abnormal urinalysis Current Visit: Yes Status: Acute Plan: AVOID ANTIBIOTICS SHE HAS NO SS. ADV [facility] WITH NO SS SHE SHOULD NOT HAVE ANY ANTIBIOTICS.
[2024-07-29] MEDS ORDERED: TRAZODONE 50 MG TABLET PO PRN (13:10)
[2024-07-29 15:30] LABS: Sqamous Epithelial <5 /HPF (None Seen); Urine Bacteria None Seen /HPF (<20); Urine Bilirubin NEGATIVE (Negative); Urine Blood Negative (Negative); Urine Clarity Clear (Clear); Urine Color Light-Yellow (Yellow); Urine Culture Reflex Order NOT NEEDED; Urine Glucose NEGATIVE (Negative); Urine Ketones NEGATIVE (Negative); Urine Micro Reflex YN NO BILL MICROSCOPIC; Urine Mucus Slight /HPF (None Seen); Urine Nitrite NEGATIVE (Negative); Urine Protein NEGATIVE (Negative); Urine RBC <5 /HPF (None Seen); Urine Urobilinogen Normal (Normal); Urine WBC <5 /HPF (<5); Urine WBC Clump Rare /HPF (None Seen)
[2024-07-29] MEDS: ESTAZOLAM 2 MG PO SCH (20:59)
--- NOTE | 2024-07-30 02:56 | PN ---
Date of Progress Note: 07/29/2024 Time: 1:40 p.m. Subjective: Ms. Pike is doing very well. She has had gross pain in the lower back, it is much b page since her surgery. Still would like to have no pain, but is working well with therapy and does note some pain going on the right lower extremity as she stands and ambulates. Objective: No fevers, chills. No significant myalgias, arthralgias, rash, or psychiatric issues. Physical Examination: Vital Signs: Blood pressure 134/72, pulse 76, respiratory rate 16, temperature 97.8, oxygen saturati on 95%. General: Ms. Pike is resting comfortably in a chair in her room. HEENT: She is normocephalic, atraumatic. Sclerae anicteric. Oropharynx pink, moist. Neck: Supple. Has good hemostasis at the lumbar surgical disk herniation surgery site. Laboratory Studies: No new laboratory studies. X-ray/imaging: No new x-rays or imaging. Medications: She continues Tylenol 650 mg every 4 hours as needed for mild pain, Eliquis 2.5 mg twic e daily for DVT risk reduction, Celexa 40 mg daily for depression, Flexeril 5 mg 3 times daily for mu scle spasms, Zetia for cholesterol control, Lasix 20 mg daily for fluid management, Synthroid 0.075 m g daily for hypothyroidism, Cytomel in addition for thyroid management, magnesium oxide 400 mg twice daily, HEMOCYTE PLUS daily, Ensure Enlive 237 mL daily, Protonix 40 mg daily. She has the Inderal 20 mg twice daily for central tremor. Also, trazodone for insomnia and tramadol for pain. Progress Made With Physical, Occupational, And Speech Therapy: Today with physical therapy, she did complete stair management going up and down 15 steps with bilateral handrails with contact guard assi stance. [id number] transfers done with contact guard to standby assistance. In addition, she did ambulate 300 feet twice with a rolling walker with contact guard assistance. She did need a couple o f standing breaks while she was doing therapy. Regarding occupational therapy, multiple transfers to chair, bed, wheelchair, shower with contact guard assistance, excited to get to shower, brought to [facility], she is able to perform all the showering activities safely, wash buttocks region, perform uppe r body dressing, setup, contact guard assistance. Upper body dressing did very well. Assessment: Ms. Pike is a 74-year-old patient with L3-4 lumbar disk herniation, status post arth roscopic posterior diskectomy. She is doing very well with physical, occupation therapy. She does h ave decreased mobility, decreased physical functioning, postoperative pain, GE reflux, malnutrition, anemia, hypothyroidism, DVT risk, muscle spasms. Plan: She will continue with physical, occupation therapy 3 hours a day, 5 of 7 days. In addition, she has comorbid conditions addressed by Dr. Padilla, her primary care physician. OLIVA/NGUYEN Voice ID: [id number] Report ID: [id number]
[2024-07-30] MEDS: LIDOCAINE 4% PATCH TOP SCH (06:30)
--- NOTE | 2024-07-30 12:51 | P.PN ---
Subjective Date of Service: 07/30/24 Chief Complaint: REHAB AFTER L SPINE SURGERY Subjective: Improving THERE IS NO UTI SS. NO FEVER. SHE HAS NO PAIN SHE IS ABLE TO WALK ABOUT 250 FEET WITH WALKER HER R LEG IS STILL WEAK. Review of Systems 10-point ROS is otherwise unremarkable General: Weakness Physical Examination - Vital Signs Temperature: 96.9 F Blood Pressure: 135/66 Pulse: 88 Respirations: 18 Pulse Ox (%): 95 - Physical Exam General: Acute distress, Mild distress HEENT: Atraumatic, PERRLA, EOMI Neck: Supple, JVD not distended Respiratory: Clear to auscultation bilaterally, Normal air movement Cardiovascular: Regular rate/rhythm, Normal S1 S2 Gastrointestinal: Normal bowel sounds, No tenderness Musculoskeletal: No tenderness Integumentary: No rashes Neurological: Normal speech, Normal tone, Normal affect Lymphatics: No axilla or inguinal lymphadenopathy - Studies Medications List Reviewed: Yes Assessment And Plan - Current Problems (Diagnosis) (1) Lumbar disc prolapse with compression radiculopathy Current Visit: Yes Status: Acute Plan: SP SURGERY DOING WELL. CONT PT MAY GO HOME IN A WEEK OR TWO. R LEG WEAKNESS. CONT PT GETTING BETTER. (2) Hypertension Current Visit: No Status: Chronic Qualifiers: Hypertension type: primary hypertension Qualified Code(s): I10 - Essential (primary) hypertension (3) COPD (chronic obstructive pulmonary disease) Current Visit: No Status: Chronic Qualifiers: COPD type: unspecified COPD Qualified Code(s): J44.9 - Chronic obstructive pulmonary disease, unspecified (4) Abnormal urinalysis Current Visit: Yes Status: Acute Plan: AVOID ANTIBIOTICS SHE HAS NO SS. ADV [facility] WITH NO SS SHE SHOULD NOT HAVE ANY ANTIBIOTICS.
[2024-07-30] MEDS: CYANOCOBALAMIN 1000MCG/ML INJ IM ONE (14:40)
--- NOTE | 2024-07-30 20:02 | PN ---
Date of Progress Note: 07/30/2024 Time Of Service: 1:50 p.m. Subjective: Ms. Pike is resting in bed. She is very happy with therapy. Says the pain in the r ight lower extremity from the lower back still dull and not very significant, but does increase sligh tly when she mobilizes. Objective: No fevers, chills, nausea, vomiting. No myalgias, arthralgias. No other positive issues on review of systems. Physical Examination: Vital Signs: Blood pressure 125/66, pulse 88, respiratory rate 18, temperature 96.9, O2 saturation 9 5%. General: Again Ms. Pike is resting comfortably in no acute distress. HEENT: She is normocephalic, atraumatic. Sclerae anicteric. Oropharynx pink, moist. Neck: Supple. Chest: Clear. Back: She has no issues in terms of the lower back surgical site. She has good hemostasis there. Laboratory Studies: No new laboratory studies. X-ray/imaging: No new x-rays or imaging. Medications: Her medications have been reviewed and do continue except lidocaine patches applied to where she reports some knee pain and 2 patches applied. She has trazodone as well for sleep, other m edications unchanged. Progress Made With Physical, Occupational Therapy: With physical therapy today, she did complete gai t training 250 feet with modified independence using a rolling walker. Wheelchair mobilization 200 f eet with modified independence. She was able to don and doff her LSO brace without any difficulty. Bed mobilization with modified independence. [id number] transfers, stand pivot transfers with malina fied independence. With occupational therapy, multiple transfers with different surfaces from a tiffanie r, bed, wheelchair, and shower. She did improve all of those with supervision. She did have some 5 minute bike exercises with minimal assistance. Assessment And Plan: Ms. Pike is a 74-year-old patient with L3-4 lumbar disk herniation, status post microdiskectomy. She is doing excellent with her physical and occupational therapy. Her comorb idities are well managed. She does have insomnia, addressed with trazodone, pain with pain patch and tramadol, Inderal for essential tremor. She has Protonix for GE reflux, Hemocyte Plus for malnutrit ion, Cytomel for her hypothyroidism along with Synthroid, Lasix for fluid management. She has Zetia for lowering cholesterol, Flexeril for muscle spasms, B12 also for anemia and Eliquis 2.5 mg twice da nehal for DVT risk reduction and she will continue with physical and occupational therapy 3 hours a day , 5 of 7 days. LB/MODL Voice ID: [id number] Report ID: [id number]
[2024-07-31] MEDS: CYANOCOBALAMIN 1,000 MCG TAB PO SCH (07:00)
[2024-07-31] MEDS: POLYETHYL GLY 3350 17 GM/DOSE PO PRN (07:05)
--- NOTE | 2024-07-31 22:20 | PN ---
Date of Progress Note: 07/31/2024 Time Of Service: 1:50 p.m. Subjective: Ms. Pike is sitting in a chair in the gym. She did report today that she had an epi sode of loss of urine control. She had previously been able to control, when she needed to go had th e sensation of going, but today the diet control was not fair. She did have ordered three-view x-ray s of the spine to assess alignment following her surgery, where she had the L3-4 lumbar disk herniati on with cord stenosis and nerve root stenosis causing significant pain and she had a microdiskectomy done. Objective: Again, some difficulty with controlling bladder function. Mild back pain and pain radiat ing down right back and right lower extremity, but that is much improved. Physical Examination: Vital Signs: Blood pressure is 142/68, pulse 82, respiratory rate 16, temperature 97.8, oxygen satur ation 94%. General: Ms. Pike is resting comfortably in a chair. HEENT: She is normocephalic, atraumatic. Sclerae anicteric. Oropharynx moist. Neck: Supple. Chest: Clear. Heart: Regular. Extremities: No significant edema, cyanosis, or clubbing noted and good hemostasis at back surgical site. Medications: Medications have been reviewed. She is on vitamin B12 for energy 1000 mcg daily. She has pending studies. The imaging studies have been done, but the report is still pending. Laboratory Studies: No new laboratory studies. Progress Made With Physical And Occupational Therapy: With physical therapy today, she did complete wheelchair mobilization 250 feet independently. Gait training 250 feet with a rolling walker with sher pervision to modified independence. In addition with a rolling walker, she ambulated another 500 fee t, 125 feet, and 300 feet with standby assistance. She is able to go up and down 5 steps with bilate ral handrails with standby assistance. With occupational therapy, multiple functional transfers and bedroom, bathroom, and services with independence. She did ADL training at the sink. Oral hygiene, facial hygiene, standing in front of sink with independence. Assessment: Ms. Pike is a 74-year-old patient with L3-4 lumbar disk herniation, status post micr odiskectomy. She has had a very recent episode of urinary incontinence. She has x-rays and evaluate d the back to determine the alignment of the vertebrae. She has decreased mobility, decreased physic al functioning, which is improving. She has insomnia, of course pain in the lumbar region. She has Inderal for some tremor, Protonix for GE reflux, Ensure for malnutrition, magnesium oxide for muscle spasms, Synthroid for hypothyroidism, Zetia for dyslipidemia, Flexeril for muscle spasms and DVT prop hylaxis. Plan: She will continue with physical and occupational therapy, 3 hours a day, 5 of 7 days. We will follow up the x-rays to determine if there is additional acute intervention required. OLIVA/NGUYEN Voice ID: [id number] Report ID: [id number]
--- NOTE | 2024-07-31 23:01 | RAD REPORT ---
EXAMINATION: XR Lumbar Spine 3 Views CLINICAL INDICATION: Female, 74 years old. [facility] MA[facility] post op eval TECHNIQUE: AP, lateral, focused lateral lumbosacral views of the lumbar spine were obtained. COMPARISON: No prior exam. FINDINGS: For purposes of this dictation, it is assumed that there are 5 lumbar type vertebral bodies. ALIGNMENT: Grade 1 anterolisthesis of L3 over L4, measuring 8 mm. Other minimal degrees of spondyloli sthesis due to endplate and facet remodeling. BONES: Vertebral bodies are normal in height. No aggressive osseous lesions. Sequelae of posterior de compression at the level of L3. DISCS: Mild to moderate disc height loss at L3-4. IMPRESSION: No acute lumbar spine abnormality. Spondylotic changes as above.
[2024-08-01 06:24] LABS: Absolute Eosinophils 0.2 K/uL (0-0.5); Absolute Lymphocytes (CBC) 1.3 K/uL (0.7-4.9); Absolute Monocytes 0.8 K/uL (0.1-1.3); Absolute Neutrophil 4.3 K/uL (1.8-8.0); Basophils % 0.5 % (0-1.3); Eosinophils % 2.9 % (0-4.4); Hematocrit 34.2 % (36.0-45.0); Hemoglobin 11.3 g/dL (12.0-15.0); Lymphocytes % 19.9 % (15.3-44.8); MCH 32.5 pg (27.0-35.0); MCHC 33.1 g/dL (32.0-36.0); MCV 98.1 fL (80-100); MPV 8.1 fL (7.6-11.3); Monocytes % 11.9 % (3.3-12.3); Neutrophils % 64.8 % (41.7-73.7); Platelets 238 thou/uL (152-406); RBC Red Blood Cell Count 3.48 M/uL (3.86-4.86); Red Cell Distribution Width 14.9 % (12.1-15.2)
[2024-08-01 06:43] LABS: Albumin 2.6 g/dL (3.4-5.0); Anion Gap 6.8 mEq/L (5.0-15.0); Magnesium 2.3 mg/dL (1.6-2.4); Potassium 3.8 mEq/L (3.5-5.1); Prealbumin 15.5 mg/dL (20-40)
--- NOTE | 2024-08-01 22:01 | P.PN ---
Subjective Date of Service: 07/31/24 Chief Complaint: STABLE, NO PAIN. Subjective: Improving THERE IS NO UTI SS. NO FEVER. SHE HAS NO PAIN SHE IS ABLE TO WALK ABOUT 250 FEET WITH WALKER HER R LEG IS STILL WEAK. Physical Examination - Vital Signs Temperature: 97.7 F Blood Pressure: 117/56 Pulse: 80 Respirations: 18 Pulse Ox (%): 93 - Physical Exam General: Mild distress HEENT: Atraumatic, PERRLA, EOMI Neck: Supple, JVD not distended Respiratory: Clear to auscultation bilaterally, Normal air movement Cardiovascular: Regular rate/rhythm, Normal S1 S2 Gastrointestinal: Normal bowel sounds, No tenderness Musculoskeletal: No tenderness Integumentary: No rashes Neurological: Normal speech, Normal tone, Normal affect Lymphatics: No axilla or inguinal lymphadenopathy - Studies Laboratory Data (last 24 hrs) 08/01/24 08/01/24 05:34 05:34 WBC 6.60 Hgb 11.3 L Hct 34.2 L Plt Count 238 Sodium 139 Potassium 3.8 BUN 13 Creatinine 0.63 Glucose 103 Magnesium 2.3 Medications List Reviewed: Yes Assessment And Plan - Current Problems (Diagnosis) (1) Lumbar disc prolapse with compression radiculopathy Current Visit: Yes Status: Acute Plan: SP SURGERY DOING WELL. CONT PT MAY GO HOME IN A WEEK OR TWO. R LEG WEAKNESS. CONT PT GETTING BETTER. CONT PT STABLE. (2) Hypertension Current Visit: No Status: Chronic Qualifiers: Hypertension type: primary hypertension Qualified Code(s): I10 - Essential (primary) hypertension (3) COPD (chronic obstructive pulmonary disease) Current Visit: No Status: Chronic Qualifiers: COPD type: unspecified COPD Qualified Code(s): J44.9 - Chronic obstructive pulmonary disease, unspecified (4) Abnormal urinalysis Current Visit: Yes Status: Acute Plan: AVOID ANTIBIOTICS SHE HAS NO SS. ADV [facility] WITH NO SS SHE SHOULD NOT HAVE ANY ANTIBIOTICS.
--- NOTE | 2024-08-01 22:02 | P.PN ---
Subjective Date of Service: 08/01/24 Chief Complaint: STABLE, NO PAIN. Subjective: Improving THERE IS NO UTI SS. NO FEVER. SHE HAS NO PAIN SHE IS ABLE TO WALK ABOUT 250 FEET WITH WALKER HER R LEG IS STILL WEAK. DOING BETTER CONT OT AND PT SAT DC. Physical Examination - Vital Signs Temperature: 97.7 F Blood Pressure: 117/56 Pulse: 80 Respirations: 18 Pulse Ox (%): 93 - Physical Exam General: Alert, In no apparent distress HEENT: Atraumatic, PERRLA, EOMI Neck: Supple, JVD not distended Respiratory: Clear to auscultation bilaterally, Normal air movement Cardiovascular: Regular rate/rhythm, Normal S1 S2 Gastrointestinal: Normal bowel sounds, No tenderness Musculoskeletal: No tenderness Integumentary: No rashes Neurological: Normal speech, Normal tone, Normal affect Lymphatics: No axilla or inguinal lymphadenopathy - Studies Laboratory Data (last 24 hrs) 08/01/24 08/01/24 05:34 05:34 WBC 6.60 Hgb 11.3 L Hct 34.2 L Plt Count 238 Sodium 139 Potassium 3.8 BUN 13 Creatinine 0.63 Glucose 103 Magnesium 2.3 Medications List Reviewed: Yes Assessment And Plan - Current Problems (Diagnosis) (1) Lumbar disc prolapse with compression radiculopathy Current Visit: Yes Status: Acute Plan: SP SURGERY DOING WELL. CONT PT MAY GO HOME IN A WEEK OR TWO. R LEG WEAKNESS. CONT PT GETTING BETTER. CONT PT STABLE. (2) Hypertension Current Visit: No Status: Chronic Qualifiers: Hypertension type: primary hypertension Qualified Code(s): I10 - Essential (primary) hypertension (3) COPD (chronic obstructive pulmonary disease) Current Visit: No Status: Chronic Qualifiers: COPD type: unspecified COPD Qualified Code(s): J44.9 - Chronic obstructive pulmonary disease, unspecified (4) Abnormal urinalysis Current Visit: Yes Status: Acute Plan: AVOID ANTIBIOTICS SHE HAS NO [facility] SHE SHOULD NOT HAVE ANY ANTIBIOTICS.
--- NOTE | 2024-08-02 13:59 | P.RH.PN ---
Estimated Length of Stay: 12 Expected Discharge Date: 08/03/24 Discharge Disposition Plan: Home Family Support: Yes Halfway Goal: Mobility, Transfers, Self Care Vital Signs: Last Vital Signs Temp 97.3 F 08/02/24 08:00 Pulse 73 08/02/24 08:07 Resp 14 08/02/24 08:00 BP 133/67 08/02/24 08:07 Pulse Ox 96 08/02/24 08:00 Laboratory: Laboratory Last Values WBC 6.60 thou/uL (4.3-10.9) 08/01/24 05:34 RBC 3.48 M/uL (3.86-4.86) L 08/01/24 05:34 Hgb 11.3 g/dL (12.0-15.0) L 08/01/24 05:34 Hct 34.2 % (36.0-45.0) L 08/01/24 05:34 MCV 98.1 fL (80-100) 08/01/24 05:34 MCH 32.5 pg (27.0-35.0) 08/01/24 05:34 MCHC 33.1 g/dL (32.0-36.0) 08/01/24 05:34 RDW 14.9 % (12.1-15.2) 08/01/24 05:34 Plt Count 238 thou/uL (152-406) 08/01/24 05:34 MPV 8.1 fL (7.6-11.3) 08/01/24 05:34 Neutrophils % 64.8 % (41.7-73.7) 08/01/24 05:34 Lymphocytes % 19.9 % (15.3-44.8) 08/01/24 05:34 Monocytes % 11.9 % (3.3-12.3) 08/01/24 05:34 Eosinophils % 2.9 % (0-4.4) 08/01/24 05:34 Basophils % 0.5 % (0-1.3) 08/01/24 05:34 Absolute Neutrophils 4.3 K/uL (1.8-8.0) 08/01/24 05:34 Absolute Lymphocytes 1.3 K/uL (0.7-4.9) 08/01/24 05:34 Absolute Monocytes 0.8 K/uL (0.1-1.3) 08/01/24 05:34 Absolute Eosinophils 0.2 K/uL (0-0.5) 08/01/24 05:34 Absolute Basophils 0.0 K/uL (0-0.5) 08/01/24 05:34 Sodium 139 mEq/L (136-145) 08/01/24 05:34 Potassium 3.8 mEq/L (3.5-5.1) 08/01/24 05:34 Chloride 105 mEq/L (98-107) 08/01/24 05:34 Carbon Dioxide 31 mEq/L (21-32) 08/01/24 05:34 Anion Gap 6.8 mEq/L (5.0-15.0) 08/01/24 05:34 BUN 13 mg/dL (7-18) 08/01/24 05:34 Creatinine 0.63 mg/dL (0.55-1.02) 08/01/24 05:34 Est GFR (CKD-EPI) 92 ml/min (=/>90) 08/01/24 05:34 Glucose 103 mg/dL (74-106) 08/01/24 05:34 Calcium 9.3 mg/dL (8.5-10.1) 08/01/24 05:34 Magnesium 2.3 mg/dL (1.6-2.4) 08/01/24 05:34 Albumin 2.6 g/dL (3.4-5.0) L 08/01/24 05:34 Prealbumin 15.5 mg/dL (20-40) L 08/01/24 05:34 Urine Color Light-yellow (Yellow) 07/29/24 15:11 Urine Clarity Clear (Clear) 07/29/24 15:11 Urine pH 5.0 (5.0-7.0) 07/29/24 15:11 Ur Specific [place] 1.010 (1.005-1.030) 07/29/24 15:11 Glucose (UA)(Auto) Negative (Negative) 07/29/24 15:11 Urine Ketones Negative (Negative) 07/29/24 15:11 Urine Blood Negative (Negative) 07/29/24 15:11 Urine Nitrite Negative (Negative) 07/29/24 15:11 Urine Bilirubin Negative (Negative) 07/29/24 15:11 Urine Urobilinogen Normal (Normal) 07/29/24 15:11 Ur Leukocyte Esterase Negative Riley/uL (Negative) 07/29/24 15:11 Urine RBC <5 /HPF (None Seen) 07/29/24 15:11 Urine WBC <5 /HPF (<5) 07/29/24 15:11 Urine WBC Clumps Rare /HPF (None Seen) 07/29/24 15:11 Ur Squamous Epith Cells <5 /HPF (None Seen) 07/29/24 15:11 Urine Bacteria None seen /HPF (<20) 07/29/24 15:11 Hyaline Casts 0-5 /LPF (None Seen) 07/25/24 18:15 Urine Mucus Slight /HPF (None Seen) 07/29/24 15:11 Urine Culture Reflexed Not needed 07/29/24 15:11 Urine Total Protein Negative (Negative) 07/29/24 15:11 Weight: 176 lb Wound Present: No Closed Surgical Incision Present: Yes Negative Pressure Wound Therapy Present: No Physician Update: Rollator 500' and without assistive device short distances. Up and down 20 steps. Met all OT goalsn with spinal precautions. Labs reviewed and are stable. Summary: Patient's care plan and chcf goals have been reviewed and revised as necessary. Please see the Rehabilitation Signature page for all necessary signatures.
[2024-08-03 06:36] VITALS: BP 143/70; TEMP 97.7
== END 2024-08-03 09:15 | disposition home health service (06) | DRG 560 ==
LOC: 5TH 10:33
PROVIDERS: ADMIT Psychiatry & Neurology Neurology with Special Qualifications in Child Neurology; ATTEND Psychiatry & Neurology Neurology with Special Qualifications in Child Neurology
DX: Z47.89 Encounter for other orthopedic aftercare (principal); E44.1 Mild protein-calorie malnutrition; E03.9 Hypothyroidism, unspecified; M79.7 Fibromyalgia; I10 Essential (primary) hypertension; K59.00 Constipation, unspecified; J44.9 Chronic obstructive pulmonary disease, unspecified; F32.A Depression, unspecified; F41.9 Anxiety disorder, unspecified; K21.9 Gastro-esophageal reflux disease without esophagitis; F98.8 Other specified behavioral and emotional disorders with onset usually occurring in childhood and adolescence; G47.00 Insomnia, unspecified; Z96.651 Presence of right artificial knee joint; Z68.30 Body mass index [BMI] 30.0-30.9, adult; Z87.891 Personal history of nicotine dependence
CPT/HCPCS: 36415; 72100; 80048; 81001; 82040; 83735; 84134; 85025; 87077; 87086; 87088; 87186; 94010; 97110; 97112; 97116; 97163; 97165; 97530; 97542; J2003; J3420